=== PATIENT | female | born 1955 | race African-American/Black ===

== ENCOUNTER 2018-01-08 04:19 | Emergency (ER) | payer MEDICARE, MEDICAID ==
[2018-01-08] MEDS ORDERED: Ondansetron ODT 4 MG TAB ONE (04:39)
[2018-01-08 05:01] LABS: Hemoglobin 8.8 g/dL (12.0-16.0); Mean Corpuscular HGB CONC 33.4 g/dL (32.0-36.0); Mean Corpuscular Hemoglobin 26.5 pg (27.0-31.0); Mean Corpuscular Volume 79.5 fl (81.0-99.0); RBC Distribution Width 15.6 % (11.5-14.5); Red Blood Cell (RBC) Count 3.32 mill/uL (4.20-5.40); White Blood Cell (WBC) Count 3.1 thou/uL (4.8-10.8)
[2018-01-08 05:11] LABS: ALT (SGPT) 27 U/L (8-55); AST (SGOT) 48 U/L (5-34); Albumin 2.7 g/dL (3.4-4.8); Alkaline Phosphatase 244 U/L (40-150); Anion Gap 10 mmol/L (10-20); BUN (Urea Nitrogen) 27 mg/dL (9.8-20.1); Calc. Creatinine Clearance 0 mL/min (70-130); Calcium 8.5 mg/dL (7.8-10.44); Carbon Dioxide 22 mmol/L (23-31); Chloride 107 mmol/L (98-107); Estimated GFR-MDRD 59; Globulin 3.4 g/dL (2.4-3.5); Glucose 226 mg/dL (80-115); Lipase 83 U/L (8-78); Potassium 4.5 mmol/L (3.5-5.1); Protein, Total 6.1 g/dL (6.0-8.3); Sodium 134 mmol/L (136-145)
[2018-01-08 05:15] LABS: CKMB 1.1 ng/mL (0-6.6); Troponin I Less than 0.010 ng/mL (< 0.028)
[2018-01-08 05:19] LABS: #Eosinphils 0.1 thou/uL (0.0-0.7); #Lymphocytes 0.8 thou/uL (1.20-3.40); #Monocytes 0.4 thou/uL (0.11-0.59); #Neutrophils 1.8 thou/uL (1.40-6.50); %Basophils 0.7 % (0.0-1.0); %Eosinophils 3.1 % (0.0-10.0); %Lymphocytes 25.7 % (21.0-51.0); %Monocytes 12.4 % (0.0-10.0); %Neutrophils 58.2 % (42.0-75.0); MDiff Complete? YES; Mean Platelet Volume 6.4 fL (7.4-10.4); Microcytosis SLIGHT = 6-15 cells (100X) (0-5/hpf); PLT Morphology Comment Appears Decreased; Platelet Count 47 thou/uL (130-400)
[2018-01-08 06:35] LABS: Bilirubin Negative (Negative); Blood, Urine Small (Negative); Clarity CLEAR (Clear); Glucose, Urine (Dipstick) Negative (Negative); Leukocyte Moderate (Negative); Nitrite Negative (Negative); Protein, Urine (Dipstick) Negative (Neg-Trace); Urobilinogen 0.2 mg/dL (0.2-1.0)
[2018-01-08 06:37] LABS: Bacteria/HPF None Seen HPF (None Seen); Hyaline Casts/LPF 0-3 HYALINE CAST LPF (0-3 Hyaline); Pathc Cast-AUWi Flag 0.29 (0-2.49); Squamous Epithelial 0-3 HPF (0-3); Yeast-AUWi Flag 22.9 (0-25.0)
[2018-01-08 06:39] LABS: Specific Gravity, Urine 1.043 (1.002-1.036)
--- NOTE | 2018-01-08 08:18 | CT ---
PRELIMINARY REPORT/[facility]/EMERGENCY AFTER HOURS PROCEDURE: EXAM: CT Abdomen and Pelvis With Intravenous Contrast EXAM DATE/TIME: Exam ordered 01/08/2018 5:07 AM CLINICAL HISTORY: 62 years old, female; Pain; Abdominal pain; Generalized; Patient HX: Additional history obtained from ems, [id number] presents to ed via ems complaining of abdominal pain and vomiting onset of a couple of days . Pt. States that her last bm was yesterday. Pt. Denies any hematochezia or melena. TECHNIQUE: Axial computed tomography images of the abdomen and pelvis with intravenous contrast. Coronal reforma tted images were created and reviewed. COMPARISON: No relevant prior studies available. FINDINGS: Lung bases: There is subpleural atelectasis of the dependent portions of the lungs. ABDOMEN: Liver: There is nodularity of the liver contour suggestive of cirrhosis. Gallbladder and bile ducts: The gallbladder is probably surgically absent. No ductal dilation. Pancreas: The pancreas appears normal. No ductal dilation. Spleen: The spleen is normal. Adrenals: The adrenal glands are normal. Kidneys and ureters: The left kidney is normal. There is a focal right renal hypodensity that cannot be further characterized on the current examination. No hydronephrosis. Stomach and bowel: The stomach is normal. The duodenum is unremarkable. No obstruction. No mucosal th ickening. PELVIS: Appendix: No findings to suggest acute appendicitis. Bladder: The bladder is normal. Reproductive: The uterus is not visualized, and may be atrophic or surgically absent. ABDOMEN and PELVIS: Intraperitoneal space: There is moderate to marked abdominopelvic ascites. Bones/joints: No acute fracture. No dislocation. Soft tissues: There is a ventral abdominal wall hernia containing a small amount of ascites fluid. Vasculature: There are gastric splenic varices. The vasculature demonstrates diffuse mild atherosclerotic calcification. No abdominal aortic aneurysm. Lymph nodes: Normal. No enlarged lymph nodes. IMPRESSION: Liver cirrhosis with moderate to marked abdominopelvic ascites. Thank you for allowing us to participate in the care of your patient. Dictated and Authenticated by: Fredi Penaloza MD 01/08/2018 6:41 AM Central Time ([place] & [place]) FINAL REPORT CT ABDOMEN AND PELVIS WITH IV CONTRAST: I agree with the preliminary report given by Dr. Fredi Penaloza of [employer]. POS: [facility] [place]
== END 2018-01-08 07:02 | disposition home or self-care (01) ==
LOC: ERS 04:19
DX: K74.60 Unspecified cirrhosis of liver (principal); R18.8 Other ascites; Z79.899 Other long term (current) drug therapy; E11.9 Type 2 diabetes mellitus without complications; I10 Essential (primary) hypertension; F20.9 Schizophrenia, unspecified; F32.9 Major depressive disorder, single episode, unspecified
CPT/HCPCS: 74177; 80053; 81003; 81015; 82553; 83690; 84484; 85025; 87077; 87086; 87186; 93005; 96372; Q0162

== ENCOUNTER 2018-04-05 05:58 | Inpatient (IN) | payer MEDICARE, MEDICAID ==
[2018-04-05 06:42] LABS: INR-International Normal Ratio 1.3
[2018-04-05 06:48] LABS: ALT (SGPT) 30 U/L (8-55); AST (SGOT) 56 U/L (5-34); Albumin 2.7 g/dL (3.4-4.8); Alkaline Phosphatase 255 U/L (40-150); Anion Gap 14 mmol/L (10-20); BUN (Urea Nitrogen) 17 mg/dL (9.8-20.1); Bilirubin, Total 1.2 mg/dL (0.2-1.2); Calc. Creatinine Clearance 0 mL/min (70-130); Calcium 8.8 mg/dL (7.8-10.44); Carbon Dioxide 19 mmol/L (23-31); Chloride 107 mmol/L (98-107); Estimated GFR-MDRD 43; Globulin 4.2 g/dL (2.4-3.5); Glucose 107 mg/dL (80-115); Potassium 4.7 mmol/L (3.5-5.1); Protein, Total 6.9 g/dL (6.0-8.3); Sodium 135 mmol/L (136-145)
[2018-04-05 06:56] LABS: #Eosinphils 0.1 thou/uL (0.0-0.7); #Lymphocytes 0.8 thou/uL (1.20-3.40); #Monocytes 0.5 thou/uL (0.11-0.59); %Basophils 0.8 % (0.0-1.0); %Eosinophils 1.6 % (0.0-10.0); %Lymphocytes 18.2 % (21.0-51.0); %Monocytes 10.4 % (0.0-10.0); %Neutrophils 69.1 % (42.0-75.0); Anisocytosis SLIGHT = 6-15 cells (100X) (0-5/hpf); Hemoglobin 9.3 g/dL (12.0-16.0); MDiff Complete? YES; Mean Corpuscular HGB CONC 32.9 g/dL (32.0-36.0); Mean Corpuscular Volume 79.2 fL (78.0-98.0); Mean Platelet Volume 7.9 fL (7.4-10.4); PLT Morphology Comment Appears Decreased; Platelet Count 62 thou/uL (130-400); RBC Distribution Width 15.7 % (11.5-14.5); Red Blood Cell (RBC) Count 3.55 mill/uL (4.20-5.40); White Blood Cell (WBC) Count 4.4 thou/uL (4.8-10.8)
[2018-04-05] MEDS ORDERED: Lidocaine 1% w/Epinephrine 1:100K 20 ML VIAL ONE (07:11)
--- NOTE | 2018-04-05 10:20 | ULT ---
LIMITED ABDOMINAL ULTRASOUND: INDICATION: Evaluate for ascites. FINDINGS: There is a mild amount of ascites present, predominantly in the right upper quadrant and the left low er quadrant. IMPRESSION: Mild amount of ascites. Findings discussed with Dr. Gomez at 9:30 a.m. on 04/05/18. CODE CR POS: [facility]
[2018-04-05 10:43] VITALS: BMI 34.4
[2018-04-05] MEDS ORDERED: Calcium Carbonate 500 MG ChewTAB PO PRN (11:29)
[2018-04-05] MEDS ORDERED: Dextrose 5% in Water 1,000 ML IV PRN (11:29)
[2018-04-05] MEDS ORDERED: Dextrose 50% Abboject 50 ML SYRINGE SLOW IVP PRN (11:29)
--- NOTE | 2018-04-05 11:55 | HP ---
DATE OF ADMISSION: 04/05/2018 PRIMARY CARE PHYSICIAN: Damian Moulton M.D. Primary side splitter out of town. CHIEF COMPLAINT: Abdominal distention. HISTORY OF PRESENT ILLNESS: Patient is a 62-year-old female with cirrhosis with portal hypertension who presented to the emergency room with worsening abdominal swelling that has been going on for last 2-3 weeks. Her abdomen gradually got distended. She had some nausea; however, denies any vomiting. No fever, chills, diarrhea or jaundice reported. She has constant dull pain due to distention. She denies any abdominal tenderness. This pain was constant without any aggravating or relieving factor. No chest pain, palpitations or syncope reported. PAST MEDICAL HISTORY: 1. Liver cirrhosis secondary to alcohol abuse with ascites and portal hypertension. 2. Pancytopenia secondary to hypersplenism. 3. Obesity with a BMI 34.5. 4. Hypertension. 5. Diabetes mellitus type 2. 6. Bipolar disorder. PAST SURGICAL HISTORY: 1. Hysterectomy with tubal ligation. 2. Right shoulder repair. 3. EGD and colonoscopy. 4. Cataract surgery. ALLERGIES: The patient is allergic to ASPIRIN, CODEINE, FENTANYL, IODINE, DEMEROL, VERSED, PENICILLIN, and other medications. CURRENT HOME MEDICATIONS: Patient does not remember any of her home medications. We are trying to obtain from her daughter. Per outpatient pharmacy records, she recently filled prescription for Novolin insulin 70/30, 60 units twice a day; Ambien as needed; Requip as needed; Zofran as needed; hydroxyzine as needed; tramadol as needed. SOCIAL HISTORY: Patient currently lives at home with her family. She denies any current use of alcohol, smoking, or drug use. She has a history of alcohol abuse. She is FULL CODE. She has a history of drug abuse in the remote past. FAMILY HISTORY: Significant for breast cancer in the mother. REVIEW OF SYSTEMS: The following complete review of systems was negative, unless otherwise mentioned in the HPI or below: Constitutional: Weight loss or gain, ability to conduct usual activities. Skin: Rash, itching. Eyes: Double vision, pain. ENT/Mouth: Nose bleeding, neck stiffness, pain, tenderness. Cardiovascular: Palpitations, dyspnea on exertion, orthopnea. Respiratory: Shortness of breath, wheezing, cough, hemoptysis, fever or night sweats. Gastrointestinal: Poor appetite, abdominal pain, heartburn, nausea, vomiting, constipation, or diarrhea. Genitourinary: Urgency, frequency, dysuria, nocturia. Musculoskeletal: Pain, swelling. Neurologic/Psychiatric: Anxiety, depression. Allergy/Immunologic: Skin rash, bleeding tendency. PHYSICAL EXAMINATION: VITAL SIGNS: In the emergency room, temperature 98.4, respirations 20, pulse rate of 98, blood pressure 136/73 with O2 saturation 97% on room air. GENERAL: A 62-year-old female, in no significant distress. HEENT: Atraumatic, normocephalic, sclerae are anicteric. Dry mucous membranes. No oral lesion. NECK: Supple, no JVD, no carotid bruit. LUNGS: Showed diminished air entry at bilateral bases. No rhonchi, rales, or wheezing noted. HEART: S1, S2 present. Regular, tachycardic, no heaves or pulsation. No significant murmurs appreciated. ABDOMEN: Distended with shifting dullness. Mild generalized tenderness, no rebound, guarding, no costovertebral angle tenderness. EXTREMITIES: 1+ edema in bilateral lower extremities. No calf tenderness. SKIN: Warm and dry. LYMPH NODES: No palpable lymph nodes in the neck. PERIPHERAL VASCULAR: Radial pulses palpable bilaterally. MUSCULOSKELETAL: No joint swelling or tenderness. NEUROLOGY: Grossly nonfocal, moves all four extremities. Flapping tremors were present. LABORATORY FINDINGS: 1. Ammonia of 111, creatinine 1.49, sodium 135, potassium 4.7, chloride 107, bicarbonate 19, albumin 2.7, alkaline phosphatase 255. 2. CBC showed WBC 4.4 with hemoglobin 9.3, hematocrit 28.1 with platelet of 62. 3. Abdominal ultrasound showed mild ascites. Please note that paracentesis was attempted in the emergency room and was unsuccessful. IMPRESSION: 1. Hepatic encephalopathy. 2. Abdominal discomfort secondary to symptomatic ascites. 3. Cirrhosis secondary to alcohol with pancytopenia, portal hypertension, and coagulopathy. 4. Acute kidney injury, probably the precipitant for hepatic encephalopathy. It is unclear whether patient takes lactulose at home. We will also rule out urinary tract infection. 5. Chronic kidney disease, stage 2. 6. Obesity with a BMI 34.5. 7. Bipolar disorder. 8. Diabetes mellitus type 2. 9. Hypertension. PLAN: The patient will be monitored on the medical floor. We will start her on lactulose. If encephalopathy persists, then we will consider adding rifaximin in a.m. We will add empiric antibiotics to prevent SBP. Rule out urinary tract infection. Gentle IV hydration for acute kidney injury. We will consult Gastroenterology. We will recheck ammonia in a.m. We will discuss with GI if we can get a paracentesis done. We will start her on sliding scale. Confirm insulin dosing. Plan of care was discussed with the patient in detail. She stated understanding. MTDD
--- NOTE | 2018-04-05 12:38 | CON ---
DATE OF CONSULTATION: 04/05/2018 HISTORY OF PRESENT ILLNESS: The patient is a 62-year-old -[place] female who presented to [facility] emergency room today with increasing abdominal distention. She also had abdominal discomfort. She had previously been undergoing paracentesis at [facility] in [place] on a regular basis and then stop ped for several months. Her distention did not recur. However, over the last several weeks, it has recurred. She denies any melena, hematochezia, any weight loss, any fever or chills. She has had na usea and vomiting several days ago. She has been seen by Dr. Gudino in the past. PAST MEDICAL HISTORY: Includes diabetes mellitus, history of hepatitis C, cirrhosis, hypertension. PAST SURGICAL HISTORY: Cholecystectomy, hysterectomy, right shoulder surgery, and tubal ligation. ALLERGIES: No known allergies. MEDICATIONS: Simvastatin 10 mg p.o. daily, spironolactone 100 mg p.o. daily, omeprazole 40 mg p.o. d aily, trazodone 100 mg p.o. at bedtime, tramadol 50 mg p.o. b.i.d. p.r.n., Ambien 10 mg p.o. at bedti me, Diovan 40 mg p.o. daily, simvastatin 20 mg p.o. daily, Xifaxan 550 mg p.o. b.i.d., Zofran 4 mg p. o. q.6 hours p.r.n., nadolol 20 mg p.o. daily, lactulose 30 mL p.o. daily, insulin 20 units subcu q.p .m., Lasix 40 mg p.o. daily, citalopram 10 mg p.o. daily, and Cipro 500 mg p.o. q.12 hours. SOCIAL HISTORY: She stopped smoking and drinking in 1988. FAMILY HISTORY: Negative for GI or liver disease. REVIEW OF SYSTEMS: Constitutional: No fever, chills, no weight loss. Eyes: Normal, no blurred vis ion or double vision. ENT: No sore throat or earaches. Cardiovascular: No chest pain or palpitati on. Pulmonary: No shortness of breath, cough or wheezing. Gastrointestinal: See above. Genitouri nary: No hematuria or dysuria. Musculoskeletal: No joint pain or muscle weakness. Skin: No rashe s. PHYSICAL EXAMINATION: GENERAL: Shows overweight -[place] female in no acute distress. VITAL SIGNS: Temperature 97.8, pulse 88, respiratory rate 18, blood pressure 148/71. HEENT: Unremarkable. NECK: Supple. CHEST: Clear. CARDIOVASCULAR: Regular rate and rhythm. ABDOMEN: Soft. Diffusely tender. There is a bandage in the left lower quadrant from a recent parac entesis. She has midline surgical scar. RECTAL: Deferred. EXTREMITIES: Showed no edema. LABORATORY DATA: Shows a white blood cell count of 4.4, hemoglobin 9.3, hematocrit 28.1, MCV of 97.2 , platelet count 62,000. PT is 16.0 with an INR of 1.3. Chemistries show sodium 135, CO2 19, creati nine 1.49, glucose 67, AST of 56, alkaline phosphatase of 255. Ammonia 111, albumin 2.7, lipase of 1 03. ASSESSMENT: 1. Cirrhosis. 2. Mild hepatic encephalopathy. 3. Ascites - the patient had mild amount of ascites by ultrasound and had a dry tap in the emergency room. Therefore, I would not perform paracentesis again. 4. History of hepatitis C - hepatitis C by PCR was negative. 5. Diabetes mellitus. RECOMMENDATIONS: 1. Low sodium diet. 2. Hold diuretics for now. 3. Continue lactulose 30 mL p.o. b.i.d. 4. Continue Xifaxan 550 mg p.o. b.i.d. 5. Repeat serum ammonia tomorrow. 6. Okay to begin diet.
[2018-04-05] MEDS: Sodium Chloride 0.9% 1,000 ML IV SCH (12:42)
[2018-04-05] MEDS ORDERED: ROPINIROLE HCL 0.5 MG PO PRN (15:15)
[2018-04-05] MEDS ORDERED: Ondansetron ODT 4 MG TAB PO PRN (16:07)
[2018-04-05] MEDS ORDERED: Ondansetron HCl/PF 4 MG/2 ML Vial IVP PRN (16:07)
[2018-04-05] MEDS: traMADol HCl 50 MG TAB PO PRN (16:27)
[2018-04-05] MEDS: hydrOXYzine 25 MG TAB PO PRN ×2 (16:27→22:43)
[2018-04-05] MEDS: rOPINIRole HCl 0.25 MG TAB PO PRN ×2 (16:27→22:43)
[2018-04-05] MEDS ORDERED: Insulin Glargine 10 UNITS in Pre-Filled Syringe SC SCH (21:00)
[2018-04-05] MEDS: Rifaximin 550 MG TAB PO SCH (21:04)
[2018-04-05] MEDS: Famotidine/PF 20 mg/2ml Vial SLOW IVP SCH (21:04)
[2018-04-06] MEDS: Sodium Chloride 0.9% 1,000 ML IV SCH ×2 (03:17→10:35)
[2018-04-06 04:36] LABS: ALT (SGPT) 25 U/L (8-55); AST (SGOT) 49 U/L (5-34); Albumin 2.4 g/dL (3.4-4.8); Alkaline Phosphatase 202 U/L (40-150); Anion Gap 11 mmol/L (10-20); BUN (Urea Nitrogen) 16 mg/dL (9.8-20.1); Bilirubin, Total 1.1 mg/dL (0.2-1.2); Calc. Creatinine Clearance 67 mL/min (70-130); Calcium 8.3 mg/dL (7.8-10.44); Carbon Dioxide 19 mmol/L (23-31); Chloride 109 mmol/L (98-107); Estimated GFR-MDRD 48; Globulin 3.7 g/dL (2.4-3.5); Glucose 189 mg/dL (80-115); Lipase 92 U/L (8-78); Potassium 4.8 mmol/L (3.5-5.1); Protein, Total 6.1 g/dL (6.0-8.3); Sodium 134 mmol/L (136-145)
[2018-04-06 04:58] LABS: #Lymphocytes 0.6 thou/uL (1.20-3.40); #Monocytes 0.4 thou/uL (0.11-0.59); %Basophils 0.2 % (0.0-1.0); %Eosinophils 1.2 % (0.0-10.0); %Lymphocytes 18.6 % (21.0-51.0); Hemoglobin 8.9 g/dL (12.0-16.0); Mean Corpuscular HGB CONC 33.6 g/dL (32.0-36.0); Mean Corpuscular Hemoglobin 26.5 pg (27.0-31.0); Mean Corpuscular Volume 78.7 fL (78.0-98.0); Mean Platelet Volume 6.1 fL (7.4-10.4); PLT Morphology Comment Appears Decreased; Platelet Count 55 thou/uL (130-400); Red Blood Cell (RBC) Count 3.34 mill/uL (4.20-5.40)
[2018-04-06] MEDS ORDERED: Acetaminophen 325 MG TAB PO PRN (06:27)
[2018-04-06] MEDS ORDERED: Eucerin (Mineral Oil/Petrolatum,White) 30 gm Jar TOP PRN (06:27)
[2018-04-06] MEDS ORDERED: Metoclopramide HCl 10 MG/2 ML VIAL IVP PRN (06:27)
[2018-04-06] MEDS ORDERED: Sodium Chloride 0.65% Nasal 44 ML BOT EA NARE PRN (06:27)
[2018-04-06] MEDS ORDERED: hydrALAZINE 20 MG/ML VIAL SLOW IVP PRN (06:27)
[2018-04-06] MEDS ORDERED: Chloraseptic Spray 180 ml Bottle PO PRN (06:27)
[2018-04-06] MEDS ORDERED: Artificial Tears 18 DROP/0.9 ML EA EYE PRN (06:27)
[2018-04-06] MEDS ORDERED: Diabetic Tussin 200 MG/10 ML UDCUP PO PRN (06:27)
[2018-04-06] MEDS: Escitalopram Oxalate 10 mg Tablet PO SCH (08:16)
[2018-04-06] MEDS: Famotidine/PF 20 mg/2ml Vial SLOW IVP SCH ×2 (08:16→20:14)
[2018-04-06] MEDS: Atorvastatin Calcium 10 MG TAB PO SCH (08:16)
[2018-04-06] MEDS: Rifaximin 550 MG TAB PO SCH ×2 (08:16→20:14)
[2018-04-06] MEDS ORDERED: Insulin Glargine 10 UNITS in Pre-Filled Syringe SC SCH (09:00)
[2018-04-06] MEDS: traMADol HCl 50 MG TAB PO PRN (09:25)
[2018-04-06] MEDS ORDERED: Ondansetron HCl/PF 4 MG/2 ML Vial IVP PRN (09:30)
--- NOTE | 2018-04-06 09:32 | PDOC.PN ---
- Subjective Encounter Start Date: 04/06/18 Encounter Start Time: 07:40 -: old records requested/rev pt c/o nausea, had BM, no abdominal pain, no fever - Objective Resuscitation Status: Resuscitation Status FULL:Full Resuscitation MAR Reviewed: Yes Vital Signs & Weight: Vital Signs (12 hours) Temp Pulse Resp BP Pulse Ox 04/06/18 08:03 98.6 F 94 20 134/68 98 04/06/18 04:00 98.6 F 96 18 159/98 H 98 04/06/18 00:00 97.5 F L 88 16 137/77 100 Weight Weight 220 lb 3.869 oz I&O: 04/05/18 04/06/18 04/07/18 06:59 06:59 06:59 Intake Total 1400 Balance 1400 Result Diagrams: 04/06/18 03:37 04/06/18 03:37 Additional Labs: Accuchecks 04/06/18 04/05/18 04/05/18 03:31 19:20 17:05 POC Glucose 173 H 192 H 137 H 04/05/18 11:34 POC Glucose 67 L Radiology Reviewed by me: Yes (US abdomen) Phys Exam - Physical Examination Constitutional: NAD HEENT: PERRLA, moist MMs, sclera anicteric Neck: no JVD, supple Respiratory: no wheezing, no rales, no rhonchi Cardiovascular: RRR, no significant murmur, no rub Gastrointestinal: soft, non-tender, no distention, positive bowel sounds mild ascites+ Musculoskeletal: no edema, pulses present Neurological: non-focal, normal sensation, moves all 4 limbs Psychiatric: normal affect Deviation from normal: no asterexis Skin: no rash, normal turgor Dx/Plan (1) Acute hepatic encephalopathy Code(s): K72.00 - ACUTE AND SUBACUTE HEPATIC FAILURE WITHOUT COMA Status: Acute (2) Acute kidney failure Status: Acute (3) Alcoholic cirrhosis of liver with ascites Code(s): K70.31 - ALCOHOLIC CIRRHOSIS OF LIVER WITH ASCITES Status: Chronic (4) Bipolar disorder Code(s): F31.9 - BIPOLAR DISORDER, UNSPECIFIED Status: Chronic (5) Chronic hepatitis C Code(s): B18.2 - CHRONIC VIRAL HEPATITIS C Status: Chronic Qualifiers: (6) DM2 (diabetes mellitus, type 2) Status: Chronic (7) Hypertension Code(s): I10 - ESSENTIAL (PRIMARY) HYPERTENSION Status: Chronic (8) Obesity (BMI 30-39.9) Code(s): E66.9 - OBESITY, UNSPECIFIED Status: Chronic (9) Pancytopenia Code(s): D61.818 - OTHER PANCYTOPENIA Status: Chronic (10) Thrombocytopenia Code(s): D69.6 - THROMBOCYTOPENIA, UNSPECIFIED Status: Chronic - Plan cont current plan of care, continue antibiotics * continue gentle IVF for MAURIZIO * continue lactulose and rifaximin for hepatic encephalopathy * recheck ammonia, and cbc, cmp tomorrow * ambulate as tolerated * possible discharge in next 24-48 hours * GI following * medication reviewed as below * symptomatic treatment. Review of Systems - Review of Systems Eyes: negative: Pain, Vision Change, Conjunctivae Inflammation, Eyelid Inflammation, Redness, Other ENT: negative: Ear Pain, Ear Discharge, Nose Pain, Nose Discharge, Nose Congestion, Mouth Pain, Mouth Swelling, Throat Pain, Throat Swelling, Other Respiratory: negative: Cough, Dry, Shortness of Breath, Hemoptysis, SOB with Excertion, Pleuritic Pain, Sputum, Wheezing Cardiovascular: negative: chest pain, palpitations, orthopnea, paroxysmal nocturnal dyspnea, edema, light headedness, other Gastrointestinal: Nausea. negative: Vomiting, Abdominal Pain, Diarrhea, Constipation, Melena, Hematochezia, Other Genitourinary: negative: Dysuria, Frequency, Incontinence, Hematuria, Retention , Other Musculoskeletal: negative: Neck Pain, Shoulder Pain, Arm Pain, Back Pain, Hand Pain, Leg Pain, Foot Pain, Other Skin: negative: Rash, Lesions, Michael, Bruising, Other - Medications/Allergies Allergies/Adverse Reactions: Allergies Allergy/AdvReac Type Severity Reaction Status Date / Time aspirin Allergy Verified 02/08/18 08:28 codeine Allergy Verified 02/08/18 08:28 fentanyl Allergy Verified 02/08/18 08:28 Iodine and Iodide Containing Allergy Verified 02/08/18 08:28 Produc meperidine [From Demerol] Allergy Verified 02/08/18 08:28 midazolam [From Versed] Allergy Verified 02/08/18 08:28 Penicillins Allergy Verified 02/08/18 08:28 Sulfa (Sulfonamide Allergy Verified 02/08/18 08:28 Antibiotics) Medications: Current Medications Acetaminophen (Tylenol) 325 mg PO Q4H PRN PRN Reason: Headache/Fever or Mild Pain Artificial Tears (Tears Naturale) 0 drop EA EYE PRN PRN PRN Reason: Dry Eyes Atorvastatin Calcium (Lipitor) 10 mg PO DAILY [facility] Last Admin: 04/06/18 08:16 Dose: 10 mg Calcium Carbonate (Tums) 1,000 mg PO Q4H PRN PRN Reason: Heartburn or Indigestion Dextrose/Water (Dextrose 50%) 25 gm SLOW IVP PRN PRN PRN Reason: Hypoglycemia Escitalopram Oxalate (Lexapro) 10 mg PO DAILY [facility] Last Admin: 04/06/18 08:16 Dose: 10 mg Famotidine (Pepcid) 20 mg SLOW IVP Q12HR [facility] Last Admin: 04/06/18 08:16 Dose: 20 mg Glucagon (Glucagon) 1 mg IM PRN PRN PRN Reason: Hypoglycemia Guaifenesin (Robitussin Sf) 200 mg PO Q4H PRN PRN Reason: Cough Hydralazine HCl (Apresoline) 10 mg SLOW IVP Q4H PRN PRN Reason: Systolic BP > 180 Hydroxyzine HCl (Atarax) 25 mg PO TID PRN PRN Reason: Itching Last Admin: 04/05/18 22:43 Dose: 25 mg Levofloxacin 500 mg/ Device 100 mls @ 100 mls/hr IVPB Q24HR [facility] Last Admin: 04/05/18 12:42 Dose: 100 mls Dextrose/Water (D5w) 1,000 mls @ 0 mls/hr IV .Q0M PRN PRN Reason: Hypoglycemia Insulin Human Regular (Humulin R) 0 units SC .MILD SLIDING SCALE PRN PRN Reason: Mild Correctional Scale Insulin Human Regular (Humulin R) 0 units SC .BEDTIME SLIDING SC PRN PRN Reason: Bedtime Correctional Scale Lactulose (Lactulose) 20 gm PO TID [facility] Last Admin: 04/06/18 08:16 Dose: 20 gm Metoclopramide HCl (Reglan) 5 mg IVP Q4H PRN PRN Reason: Nausea Mineral Oil/White Petrolatum (Eucerin Cream) 0 gm TOP BIDPRN PRN PRN Reason: Dry Skin Ondansetron HCl (Zofran Odt) 4 mg PO Q6H PRN PRN Reason: Nausea/Vomiting Ondansetron HCl (Zofran) 4 mg IVP Q6H PRN PRN Reason: Nausea/Vomiting Phenol (Chloraseptic [place] 180 Ml Bot) 0 ml PO PRN PRN PRN Reason: Sore Throat Rifaximin (Xifaxan) 550 mg PO BID [facility] Last Admin: 04/06/18 08:16 Dose: 550 mg Ropinirole HCl (Requip) 0.25 mg PO TID PRN PRN Reason: Restless leg Last Admin: 04/05/18 22:43 Dose: 0.25 mg Sodium Chloride (Stevenson Nasal [place] 0.65%) 0 ml EA NARE QIDPRN PRN PRN Reason: Nasal Congestion Tramadol HCl (Ultram) 50 mg PO BID PRN PRN Reason: Pain Last Admin: 04/06/18 09:25 Dose: 50 mg
[2018-04-06] MEDS: Ondansetron ODT 4 MG TAB PO PRN ×2 (10:34→20:13)
[2018-04-06] MEDS: Insulin Regular 300 UNITS/3 ML VIAL SC PRN ×3 (13:19→20:18)
[2018-04-06] MEDS: rOPINIRole HCl 0.25 MG TAB PO PRN (20:15)
[2018-04-06] MEDS: hydrOXYzine 25 MG TAB PO PRN (20:16)
--- NOTE | 2018-04-07 00:26 | PRG ---
DATE OF SERVICE: 04/06/2018 SUBJECTIVE: Ms. Barraza is feeling better today. Her abdominal pain is much improved. OBJECTIVE: VITAL SIGNS: Temperature is 97.6, pulse 86, and blood pressure 132/66. GENERAL: She is in no acute distress. She is alert and oriented x3. She has very slight asterixis . LUNGS: Clear to auscultation bilaterally. HEART: Regular rate and rhythm without murmur. ABDOMEN: Soft, nontender, nondistended. Bowel sounds are present. EXTREMITIES: No lower extremity edema. IMPRESSION: 1. Mild hepatic encephalopathy. 2. Cirrhosis of the liver secondary to past alcohol and past fatty liver. She does have antibodies to hepatitis C, but does not have chronic hepatitis C as her RNA level is negative. 3. Acute/chronic renal insufficiency. Her diuretics are currently held as her creatinine appears to be above baseline. Her creatinine did improve from yesterday to today. 4. Ascites. Ultrasound only showed a mild amount of ascites, not really adequate for therapeutic pa racentesis. She did have a dry tap in the ER. RECOMMENDATIONS: 1. Continue rifaximin 550 mg twice daily and lactulose 20 grams 3 times daily. She did have 4 or 5 bowel movements today and the lactulose could likely be backed off to twice daily depending on how sh e does overnight. If her mental status is clear tomorrow and she is having more than 4 bowel movemen ts in 24 hours, then reduce the dose of the lactulose tomorrow morning. 2. She is currently on levofloxacin. may be prophylactic for suspected SBP in the ER. This c an likely be discontinued after a 5-day course of this reason.
[2018-04-07] MEDS: traMADol HCl 50 MG TAB PO PRN (01:56)
[2018-04-07 04:26] LABS: ALT (SGPT) 26 U/L (8-55); AST (SGOT) 48 U/L (5-34); Albumin 2.5 g/dL (3.4-4.8); Alkaline Phosphatase 234 U/L (40-150); Anion Gap 9 mmol/L (10-20); BUN (Urea Nitrogen) 15 mg/dL (9.8-20.1); Calc. Creatinine Clearance 70 mL/min (70-130); Calcium 8.5 mg/dL (7.8-10.44); Carbon Dioxide 20 mmol/L (23-31); Chloride 108 mmol/L (98-107); Estimated GFR-MDRD 51; Globulin 3.9 g/dL (2.4-3.5); Glucose 266 mg/dL (80-115); Protein, Total 6.4 g/dL (6.0-8.3); Sodium 132 mmol/L (136-145)
[2018-04-07 05:20] LABS: #Eosinphils 0.1 thou/uL (0.0-0.7); #Lymphocytes 0.7 thou/uL (1.20-3.40); #Monocytes 0.5 thou/uL (0.11-0.59); #Neutrophils 2.1 thou/uL (1.40-6.50); %Basophils 0.5 % (0.0-1.0); %Eosinophils 1.9 % (0.0-10.0); %Lymphocytes 21.6 % (21.0-51.0); %Monocytes 13.6 % (0.0-10.0); %Neutrophils 62.4 % (42.0-75.0); Elliptocytes SLIGHT = 2-5 cells (100X) (0-1/hpf); Hemoglobin 9.1 g/dL (12.0-16.0); MDiff Complete? YES; Mean Corpuscular HGB CONC 33.2 g/dL (32.0-36.0); Mean Corpuscular Hemoglobin 26.7 pg (27.0-31.0); Mean Corpuscular Volume 80.5 fL (78.0-98.0); Mean Platelet Volume 6.6 fL (7.4-10.4); PLT Morphology Comment Appears Decreased; Platelet Count 63 thou/uL (130-400); RBC Distribution Width 15.8 % (11.5-14.5); Red Blood Cell (RBC) Count 3.41 mill/uL (4.20-5.40); White Blood Cell (WBC) Count 3.3 thou/uL (4.8-10.8)
[2018-04-07] MEDS: Insulin Regular 300 UNITS/3 ML VIAL SC PRN ×4 (05:35→21:12)
[2018-04-07] MEDS: Rifaximin 550 MG TAB PO SCH ×2 (09:09→21:03)
[2018-04-07] MEDS: Atorvastatin Calcium 10 MG TAB PO SCH (09:09)
[2018-04-07] MEDS: Famotidine/PF 20 mg/2ml Vial SLOW IVP SCH ×2 (09:09→21:03)
[2018-04-07] MEDS: Escitalopram Oxalate 10 mg Tablet PO SCH (09:09)
[2018-04-07] MEDS: Sodium Chloride 0.9% 1,000 ML IV SCH (09:13)
[2018-04-07] MEDS: Ondansetron ODT 4 MG TAB PO PRN (10:23)
--- NOTE | 2018-04-07 10:56 | PDOC.PN ---
- Subjective Encounter Start Date: 04/07/18 Encounter Start Time: 07:50 Patient seen and examined. No new complaints. No overnight events has no BM today but had 6-7 yesterday today feels sleepy - Objective Resuscitation Status: Resuscitation Status FULL:Full Resuscitation MAR Reviewed: Yes Vital Signs & Weight: Vital Signs (12 hours) Temp Pulse Resp BP BP Pulse Ox 04/07/18 09:08 98.2 F 84 16 99 04/07/18 07:19 98.2 F 84 16 118/74 99 04/07/18 04:00 98.5 F 87 20 157/81 H 99 Weight Admit Weight 220 lb 3.869 oz Weight 220 lb 3.869 oz I&O: 04/06/18 04/07/18 04/08/18 06:59 06:59 06:59 Intake Total 1400 1350 Balance 1400 1350 Result Diagrams: 04/07/18 03:47 04/07/18 03:47 Additional Labs: Accuchecks 04/07/18 04/06/18 04/06/18 05:31 19:30 16:23 POC Glucose 309 H 235 H 268 H 04/06/18 06:09 POC Glucose 201 H Phys Exam - Physical Examination Constitutional: NAD HEENT: PERRLA, moist MMs, sclera anicteric Neck: no JVD, supple Respiratory: no wheezing, no rales, no rhonchi Cardiovascular: RRR, no significant murmur, no rub Gastrointestinal: soft, non-tender, no distention, positive bowel sounds Musculoskeletal: no edema, pulses present Neurological: non-focal, normal sensation, moves all 4 limbs Lymphatic: no nodes Psychiatric: normal affect Skin: no rash, normal turgor Dx/Plan (1) Acute hepatic encephalopathy Code(s): K72.00 - ACUTE AND SUBACUTE HEPATIC FAILURE WITHOUT COMA Status: Acute (2) Acute kidney failure Status: Acute (3) Alcoholic cirrhosis of liver with ascites Code(s): K70.31 - ALCOHOLIC CIRRHOSIS OF LIVER WITH ASCITES Status: Chronic (4) Bipolar disorder Code(s): F31.9 - BIPOLAR DISORDER, UNSPECIFIED Status: Chronic (5) Chronic hepatitis C Code(s): B18.2 - CHRONIC VIRAL HEPATITIS C Status: Chronic Qualifiers: (6) DM2 (diabetes mellitus, type 2) Status: Chronic (7) Hypertension Code(s): I10 - ESSENTIAL (PRIMARY) HYPERTENSION Status: Chronic (8) Obesity (BMI 30-39.9) Code(s): E66.9 - OBESITY, UNSPECIFIED Status: Chronic (9) Pancytopenia Code(s): D61.818 - OTHER PANCYTOPENIA Status: Chronic (10) Thrombocytopenia Code(s): D69.6 - THROMBOCYTOPENIA, UNSPECIFIED Status: Chronic - Plan cont current plan of care, continue antibiotics * continue levaquin * dc ivf * continue rifaximin * increase lactuose * ammonia still high * ambulate as tolerated * medication reviewed as below * symptomatic treatment. Review of Systems - Review of Systems Constitutional: negative: fever, chills, sweats, weakness, malaise, other Eyes: negative: Pain, Vision Change, Conjunctivae Inflammation, Eyelid Inflammation, Redness, Other ENT: negative: Ear Pain, Ear Discharge, Nose Pain, Nose Discharge, Nose Congestion, Mouth Pain, Mouth Swelling, Throat Pain, Throat Swelling, Other Respiratory: negative: Cough, Dry, Shortness of Breath, Hemoptysis, SOB with Excertion, Pleuritic Pain, Sputum, Wheezing Cardiovascular: negative: chest pain, palpitations, orthopnea, paroxysmal nocturnal dyspnea, edema, light headedness, other Gastrointestinal: negative: Nausea, Vomiting, Abdominal Pain, Diarrhea, Constipation, Melena, Hematochezia, Other Genitourinary: negative: Dysuria, Frequency, Incontinence, Hematuria, Retention , Other Musculoskeletal: negative: Neck Pain, Shoulder Pain, Arm Pain, Back Pain, Hand Pain, Leg Pain, Foot Pain, Other Skin: negative: Rash, Lesions, Michael, Bruising, Other - Medications/Allergies Allergies/Adverse Reactions: Allergies Allergy/AdvReac Type Severity Reaction Status Date / Time aspirin Allergy Verified 02/08/18 08:28 codeine Allergy Verified 02/08/18 08:28 fentanyl Allergy Verified 02/08/18 08:28 Iodine and Iodide Containing Allergy Verified 02/08/18 08:28 Produc meperidine [From Demerol] Allergy Verified 02/08/18 08:28 midazolam [From Versed] Allergy Verified 02/08/18 08:28 Penicillins Allergy Verified 02/08/18 08:28 Sulfa (Sulfonamide Allergy Verified 02/08/18 08:28 Antibiotics) Medications: Current Medications Acetaminophen (Tylenol) 325 mg PO Q4H PRN PRN Reason: Headache/Fever or Mild Pain Artificial Tears (Tears Naturale) 0 drop EA EYE PRN PRN PRN Reason: Dry Eyes Atorvastatin Calcium (Lipitor) 10 mg PO DAILY [facility] Last Admin: 04/07/18 09:09 Dose: 10 mg Calcium Carbonate (Tums) 1,000 mg PO Q4H PRN PRN Reason: Heartburn or Indigestion Dextrose/Water (Dextrose 50%) 25 gm SLOW IVP PRN PRN PRN Reason: Hypoglycemia Escitalopram Oxalate (Lexapro) 10 mg PO DAILY [facility] Last Admin: 04/07/18 09:09 Dose: 10 mg Famotidine (Pepcid) 20 mg SLOW IVP Q12HR [facility] Last Admin: 04/07/18 09:09 Dose: 20 mg Glucagon (Glucagon) 1 mg IM PRN PRN PRN Reason: Hypoglycemia Guaifenesin (Robitussin Sf) 200 mg PO Q4H PRN PRN Reason: Cough Hydralazine HCl (Apresoline) 10 mg SLOW IVP Q4H PRN PRN Reason: Systolic BP > 180 Hydroxyzine HCl (Atarax) 25 mg PO TID PRN PRN Reason: Itching Last Admin: 04/06/18 20:16 Dose: 25 mg Levofloxacin 500 mg/ Device 100 mls @ 100 mls/hr IVPB Q24HR [facility] Last Admin: 04/06/18 12:35 Dose: 100 mls Dextrose/Water (D5w) 1,000 mls @ 0 mls/hr IV .Q0M PRN PRN Reason: Hypoglycemia Insulin Human Regular (Humulin R) 0 units SC .MILD SLIDING SCALE PRN PRN Reason: Mild Correctional Scale Last Admin: 04/07/18 05:35 Dose: 5 unit Insulin Human Regular (Humulin R) 0 units SC .BEDTIME SLIDING SC PRN PRN Reason: Bedtime Correctional Scale Last Admin: 04/06/18 20:18 Dose: 2 unit Lactulose (Lactulose) 20 gm PO QID [facility] Last Admin: 04/07/18 09:09 Dose: 20 gm Metoclopramide HCl (Reglan) 5 mg IVP Q4H PRN PRN Reason: Nausea Mineral Oil/White Petrolatum (Eucerin Cream) 0 gm TOP BIDPRN PRN PRN Reason: Dry Skin Ondansetron HCl (Zofran Odt) 4 mg PO Q6H PRN PRN Reason: Nausea/Vomiting Last Admin: 04/07/18 10:23 Dose: 4 mg Ondansetron HCl (Zofran) 4 mg IVP Q6H PRN PRN Reason: Nausea/Vomiting Phenol (Chloraseptic [place] 180 Ml Bot) 0 ml PO PRN PRN PRN Reason: Sore Throat Rifaximin (Xifaxan) 550 mg PO BID [facility] Last Admin: 04/07/18 09:09 Dose: 550 mg Ropinirole HCl (Requip) 0.25 mg PO TID PRN PRN Reason: Restless leg Last Admin: 04/06/18 20:15 Dose: 0.25 mg Sodium Chloride ([place] Nasal [place] 0.65%) 0 ml EA NARE QIDPRN PRN PRN Reason: Nasal Congestion Sodium Chloride (Flush - Normal Saline) 10 ml IVF Q12HR [facility] Last Admin: 04/07/18 09:09 Dose: 10 ml Sodium Chloride (Flush - Normal Saline) 10 ml IVF PRN PRN PRN Reason: Saline Flush Tramadol HCl (Ultram) 50 mg PO BID PRN PRN Reason: Pain Last Admin: 04/07/18 01:56 Dose: 50 mg
[2018-04-07] MEDS: hydrOXYzine 25 MG TAB PO PRN ×2 (13:44→21:13)
--- NOTE | 2018-04-07 15:19 | PRG ---
DATE OF SERVICE: 04/07/2018. SUBJECTIVE: Ms. Barraza has had a couple of bowel movements today. She states that she does not sleep well at night and so she has been somewhat sleepy during the day and has been asking for sleeping me dication. She has no nausea or vomiting. No blood in the stool. No abdominal pain. PHYSICAL EXAMINATION: VITAL SIGNS: Temperature 98.2, pulse 84, blood pressure 157/81. GENERAL: She is in no acute distress, alert and oriented x3. LUNGS: Clear to auscultation bilaterally. HEART: Regular rate and rhythm. ABDOMEN: Soft, nontender, nondistended. Bowel sounds are present. EXTREMITIES: No lower extremity edema. LABORATORY DATA: Ammonia is still elevated at 95, creatinine 1.29, albumin 2.5. IMPRESSION: 1. Mild hepatic encephalopathy. 2. Cirrhosis of liver secondary to past alcohol and fatty liver. 3. Chronic renal insufficiency. Her creatinine is improving. Currently, her diuretics are on hold. 4. Ascites. Ultrasound only showed a mild amount of ascites. Inadequate fluid for therapeutic para centesis. She is on levofloxacin, which appears to be prophylactically for suspected SBP in the ER. RECOMMENDATIONS: 1. Continue rifaximin and lactulose. I would not wean the lactulose back at this point given the pe rsistent sleepiness and adequate stool output at the current dosing. 2. Salt restricted diet. 3. The levofloxacin could be stopped after a 5-day course from a GI perspective. 4. Regarding her trouble sleeping, this is likely secondary to the hepatic encephalopathy. I would recommend avoiding any sleep aids at this point. The primary treatment is to get better control of t he hepatic encephalopathy. 5. I would anticipate discharge home tomorrow. I will sign off for now. Please call if GI can be o f assistance.
[2018-04-07] MEDS ORDERED: Insulin Glargine 60 UNITS in Pre-Filled Syringe 1 EACH SC SCH (21:00)
[2018-04-07] MEDS: rOPINIRole HCl 0.25 MG TAB PO PRN (21:13)
[2018-04-08] MEDS: hydrOXYzine 25 MG TAB PO PRN (05:02)
[2018-04-08] MEDS: Insulin Regular 300 UNITS/3 ML VIAL SC PRN (05:03)
[2018-04-08 06:53] LABS: Anion Gap 8 mmol/L (10-20); BUN (Urea Nitrogen) 16 mg/dL (9.8-20.1); Calc. Creatinine Clearance 71 mL/min (70-130); Calcium 8.5 mg/dL (7.8-10.44); Carbon Dioxide 20 mmol/L (23-31); Chloride 106 mmol/L (98-107); Estimated GFR-MDRD 51; Glucose 298 mg/dL (80-115); Potassium 5.3 mmol/L (3.5-5.1); Sodium 129 mmol/L (136-145)
[2018-04-08 07:23] VITALS: BP 125/71; TEMP 98.2
[2018-04-08] MEDS: Atorvastatin Calcium 10 MG TAB PO SCH (08:12)
[2018-04-08] MEDS: Famotidine/PF 20 mg/2ml Vial SLOW IVP SCH (08:12)
[2018-04-08] MEDS: Rifaximin 550 MG TAB PO SCH (08:12)
[2018-04-08] MEDS: Escitalopram Oxalate 10 mg Tablet PO SCH (08:12)
[2018-04-08] MEDS: rOPINIRole HCl 0.25 MG TAB PO PRN (08:12)
[2018-04-08] MEDS ORDERED: Insulin NPH/Reg Insulin Hm 300 UNITS/3 ML VIAL SC SCH (09:00)
--- NOTE | 2018-04-08 10:07 | DIS ---
DATE OF ADMISSION: 04/05/2018 DATE OF DISCHARGE: 04/08/2018 PRIMARY CARE PHYSICIAN: Damian Moulton M.D. DISCHARGE DISPOSITION: Home. PRIMARY DISCHARGE DIAGNOSES: 1. Hepatic encephalopathy (hyperammonemia). 2. Acute kidney injury. SECONDARY DISCHARGE DIAGNOSES: Chronic thrombocytopenia, pancytopenia, obesity with BMI 34, hyperten jacquie, diabetes type 2, chronic hepatitis C, bipolar disorder, cirrhosis of liver with hypertension. PRIMARY PROCEDURE/OPERATION: None. RADIOLOGICAL INVESTIGATION: Abdomen ultrasound showed cirrhosis of liver with a scant amount of asci marjorie. SIGNIFICANT LABORATORY DATA: WBC 3.3, hemoglobin 9.1, platelets 63,000. INR 1.3. Sodium 129, potas sium 5.3, BUN 16, creatinine 1.28, calcium 8.5. Ammonia 77. DISCHARGE MEDICATIONS: Zofran 4 mg q.6 hourly p.r.n., Lexapro 10 mg p.o. daily, Lasix 40 mg p.o. b.i .d., Atarax 25 mg p.o. t.i.d. p.r.n., Lantus insulin 60 units in evening and Humalog insulin 70/30, 6 0 units a.c., omeprazole 20 mg p.o. daily, rifaximin 550 mg p.o. b.i.d., ropinirole 0.5 mg p.o. p.r.n ., Zocor 20 mg p.o. daily, tramadol 50 mg p.o. b.i.d. p.r.n., Ambien 5 mg p.o. at bedtime, lactulose 20 g p.o. q.i.d., Levaquin 500 mg p.o. daily for 3 days. CONTRAINDICATIONS: None. CODE STATUS: Full code. INPATIENT CONSULTANTS: Dr. Church and Dr. Gudino were following while in hospital. TEST RESULTS PENDING ON DISCHARGE: None. ALLERGIES: ASPIRIN, CODEINE, FENTANYL. DISCHARGE PLAN: Post hospital, the patient is instructed to follow with Dr. Damian Moulton in 1 we ek and the patient will make appointment with Dr. Jamaal Gudino as instructed. HOSPITAL COURSE: A 62-year-old female who was admitted by Dr. Gurmeet Preciado. The patient was admitted for high ammonia level and hepatic encephalopathy. The patient had only mild confusion. She was wo rried about her abdominal distention and ascites. On admission, we did abdominal ultrasound, which s howed only scant amount of fluid and that is why paracentesis was not done. She was complaining of v ague abdominal discomfort and that is why she was empirically treated with Levaquin for suspected SBP . Dr. Church was following while in hospital. We discontinued paracentesis. The patient was given ge ntle IV fluid because of mild renal insufficiency. The patient required lactulose increased dose whi le in hospital and her ammonia level was significantly improving. This patient has mainly ammonia pr oblem, but she was not having any significant encephalopathy while in hospital. We discussed with th e patient about low protein diet as well as how to titrate lactulose dose and continuation of rifaxim in. At this point, the patient does not have any hepatic encephalopathy, though ammonia level is 77. The patient is instructed to titrate lactulose dose at home to keep the bowel movement at least 4-6 daily basis. The patient will continue all her previous medication upon discharge and she will foll ow with primary care physician and GI. The patient was seen and examined at bedside today. All review of system reviewed with her and lillian saldana. PHYSICAL EXAMINATION: VITAL SIGNS: Currently, temperature 98.2, pulse 88, respiratory rate 16, saturation 96% on room air, blood pressure 125/71, weight 220 pounds. GENERAL: The patient is currently alert, awake, in no obvious acute distress. HEAD: Normocephalic, atraumatic. EYES: Pupils round and reactive to light. Extraocular muscle intact. ENT: Oropharynx within normal limits. LUNGS: Clear to auscultation without any rhonchi or rales. CARDIAC: S1, S2 regular without any murmur. ABDOMEN: Soft and benign without any tenderness. EXTREMITIES: No edema. NEUROLOGIC: Nonfocal examination. The patient is medically stable for discharge today.
== END 2018-04-08 11:25 | disposition home or self-care (01) | DRG 442 ==
LOC: ERS 05:58 → T4-A 09:53
PROVIDERS: ADMIT Internal Medicine; ATTEND Internal Medicine
DX: K72.00 Acute and subacute hepatic failure without coma (principal); N17.9 Acute kidney failure, unspecified; D61.818 Other pancytopenia; K70.31 Alcoholic cirrhosis of liver with ascites; B18.2 Chronic viral hepatitis C; D69.6 Thrombocytopenia, unspecified; E66.9 Obesity, unspecified; Z68.34 Body mass index [BMI] 34.0-34.9, adult; I10 Essential (primary) hypertension; E11.9 Type 2 diabetes mellitus without complications; F31.9 Bipolar disorder, unspecified; Z88.6 Allergy status to analgesic agent; Z88.5 Allergy status to narcotic agent; Z88.8 Allergy status to other drugs, medicaments and biological substances; Z79.899 Other long term (current) drug therapy; Z79.2 Long term (current) use of antibiotics
CPT/HCPCS: 36415; 36416; 49083; 76705; 80048; 80053; 82105; 82140; 83690; 85025; 85610; 85730; 93005; A4216; J1815; J1956; J2001; J2405; J2765; Q0162; S0028

== ENCOUNTER 2018-04-14 08:37 | Inpatient (IN) | payer MEDICARE, MEDICAID ==
[2018-04-14 09:22] LABS: Bilirubin Negative (Negative); Blood, Urine Moderate (Negative); Clarity CLEAR (Clear); Glucose, Urine (Dipstick) Negative (Negative); Leukocyte Negative (Negative); Nitrite Negative (Negative); Protein, Urine (Dipstick) 100 mg/dL (Neg-Trace); Specific Gravity, Urine 1.012 (1.002-1.036); Urobilinogen 0.2 mg/dL (0.2-1.0)
[2018-04-14 09:24] LABS: Bacteria/HPF None Seen HPF (None Seen); Hyaline Casts/LPF 4-6 HYALINE CAST LPF (0-3 Hyaline); RBC/HPF 21-50 HPF (0-3); WBC/HPF 0-3 HPF (0-3)
[2018-04-14 09:39] LABS: Renal Epithelial 0-3 HPF (0-3); Transitional Epithelial 0-3 HPF (0-3)
[2018-04-14 09:45] LABS: #Lymphocytes 0.9 thou/uL (1.20-3.40); #Monocytes 0.4 thou/uL (0.11-0.59); #Neutrophils 5.8 thou/uL (1.40-6.50); %Basophils 0.1 % (0.0-1.0); %Eosinophils 0.3 % (0.0-10.0); %Lymphocytes 12.2 % (21.0-51.0); %Neutrophils 82.3 % (42.0-75.0); Hemoglobin 12.1 g/dL (12.0-16.0); Mean Corpuscular HGB CONC 32.4 g/dL (32.0-36.0); Mean Corpuscular Hemoglobin 25.9 pg (27.0-31.0); Mean Platelet Volume 7.7 fL (7.4-10.4); Platelet Count 92 thou/uL (130-400); RBC Distribution Width 16.3 % (11.5-14.5); Red Blood Cell (RBC) Count 4.68 mill/uL (4.20-5.40)
[2018-04-14 09:53] LABS: ALT (SGPT) 27 U/L (8-55); AST (SGOT) 65 U/L (5-34); Albumin 2.9 g/dL (3.4-4.8); Alkaline Phosphatase 209 U/L (40-150); Anion Gap 15 mmol/L (10-20); BUN (Urea Nitrogen) 20 mg/dL (9.8-20.1); Bilirubin, Total 1.9 mg/dL (0.2-1.2); CK (CPK) 88 U/L (29-168); Calc. Creatinine Clearance 0 mL/min (70-130); Calcium 8.9 mg/dL (7.8-10.44); Carbon Dioxide 19 mmol/L (23-31); Chloride 105 mmol/L (98-107); Estimated GFR-MDRD 52; Globulin 4.3 g/dL (2.4-3.5); Glucose 107 mg/dL (80-115); Lipase 86 U/L (8-78); Potassium 5.6 mmol/L (3.5-5.1); Protein, Total 7.2 g/dL (6.0-8.3); Sodium 133 mmol/L (136-145)
[2018-04-14 09:57] LABS: CKMB 4.6 ng/mL (0-6.6)
[2018-04-14 10:00] LABS: Acetaminophen Less than 6.0 mcg/mL (10.0-30.0); Alcohol Less than 10 mg/dL (Less than 10); Salicylate Less than 8.0 mg/dL (15.0-30.0)
[2018-04-14] MEDS ORDERED: Nitroglycerin 2% Ointment 1 INCH/1 GM Packet ONE (10:08)
[2018-04-14 10:17] LABS: Cocaine Metabolite Screen Not Detected (NotDetected); Medtox Reader # READER 1; Methamphetamine Not Detected (NotDetected); Phencyclidine (PCP) Not Detected (NotDetected); THC/Cannabinoid Screen Not Detected (NotDetected)
[2018-04-14 10:18] LABS: Amphetamine Not Detected (NotDetected); Barbiturates Screen Not Detected (NotDetected); Benzodiazepine Screen Not Detected (NotDetected); Medtox Control Line Valid? VALID (VALID); Methadone Not Detected (NotDetected); Opiate Screen Not Detected (NotDetected); Oxycodone Screen Not Detected (NotDetected); Tricyclic Screen Not Detected (NotDetected)
[2018-04-14 10:27] LABS: INR-International Normal Ratio 1.2; PTT 33.1 SEC (22.9-36.1); Prothrombin Time 15.7 SEC (12.0-14.7)
[2018-04-14] MEDS ORDERED: Enoxaparin Sodium 100 MG/ML SYRINGE ONE (10:56)
--- NOTE | 2018-04-14 11:03 | RAD ---
PORTABLE CHEST 1 VIEW: Date: 04/14/18 Time: 1038 hours HISTORY: Chest pain. FINDINGS/IMPRESSION: The heart size is borderline. There are patchy infiltrates in the lung kam bilaterally, left great er than right. No pneumothoraces or large effusions are seen. POS: [facility]
[2018-04-14] MEDS ORDERED: Ondansetron ODT 4 MG TAB SL PRN (12:13)
[2018-04-14] MEDS ORDERED: Ondansetron HCl/PF 4 MG/2 ML Vial IVP PRN (12:13)
[2018-04-14 12:40] VITALS: BMI 34.3
[2018-04-14 13:14] LABS: Troponin I 1.158 ng/mL (< 0.028)
[2018-04-14] MEDS ORDERED: Dextrose 50% Abboject 50 ML SYRINGE SLOW IVP PRN (13:38)
[2018-04-14] MEDS ORDERED: Dextrose 5% in Water 1,000 ML IV PRN (13:38)
[2018-04-14] MEDS ORDERED: Acetaminophen 650 MG Suppository PR PRN (13:38)
[2018-04-14] MEDS ORDERED: Guaifenesin DM 100-10/5 ML UDCUP PO PRN (13:38)
[2018-04-14] MEDS ORDERED: Dextrose 5 % And 0.9 % NaCl 1,000 ML IV SCH (13:45)
[2018-04-14] MEDS ORDERED: cefTRIAXone\\ROCEPHIN 2 GM in Sodium Chloride 0.9% 100 ML IVPB SCH (14:00)
[2018-04-14 15:20] LABS: Hemoglobin 11.5 g/dL (12.0-16.0); Platelet Count 76 thou/uL (130-400)
[2018-04-14 15:48] LABS: Critical Call Chem Troponin I RESULT DECREASING; Troponin I 1.109 ng/mL (< 0.028)
--- NOTE | 2018-04-14 19:27 | HP ---
REASON FOR ADMISSION: Hepatic encephalopathy, non-ST elevation myocardial infarction versus demand ischemia, hypoglycemia. HISTORY OF PRESENT ILLNESS: The patient's son went to check on at her assisted living facility in [facility]. The patient did not open her room and son had a galindo and went inside to check on her. She was not herself. EMS was summoned. The patient had a blood sugar of 40 and was given dextrose IV and was brought to the emergency room. Currently, she is drifting in and out of consciousness. Her latest fingerstick glucoses around 219. Her initial labs also showed a troponin of 0.8 and was admitted to telemetry. Currently in the room, patient hardly has 10 seconds of alertness before she drifts back into sleep. The daughter who is here at bedside is worried that she may not be compliant with her diet and medications as she does not get any help in the afternoon and evenings. The home health with [facility] comes and helps her in the morning and gives her medications, but she is not sure if patient has been taking medications appropriately in the afternoon and evening. PAST MEDICAL AND SURGICAL HISTORY: History of cirrhosis diagnosed a year back secondary to prior history of alcohol use and fatty liver, prior history of regular paracentesis done almost every 2-3 weeks in [place], but not so frequent after arriving here from last 3-4 months. Hypertension, diabetes mellitus type 2, bipolar disorder, hysterectomy with tubal ligation, right shoulder repair, EGDs, colonoscopy, cataract surgery. PERSONAL HISTORY: Does not abuse alcohol or drugs. No history of smoking. FAMILY HISTORY: Mother of breast cancer at the age of 52. Father lived up to 80 years. CURRENT MEDICATIONS: Patient is on escitalopram 10 mg daily, Lasix 40 mg twice daily, Atarax 25 mg p.o. 3 times daily p.r.n., Lantus 60 units subcu q.p.m., Novolin 70/30, 60 units subcu before meals, omeprazole 20 mg daily, Zofran p.r.n., rifaximin 550 mg twice daily, ropinirole 0.5 mg p.o. daily, simvastatin 20 mg p.o. daily, Ultram p.r.n. for pain, zolpidem 5 mg p.o. at bedtime, lactulose 20 grams p.o. 4 times daily. ALLERGIES: ASPIRIN, CODEINE, FENTANYL, IODINE, MEPERIDINE, MIDAZOLAM, PENICILLIN, and SULFA. CODE STATUS: FULL. The daughter is the power of trademark attorney. REVIEW OF SYSTEMS: Cannot be accurately obtained as patient is drifting in and out of consciousness at present. PHYSICAL EXAMINATION: GENERAL: The patient is a 62-year-old female who is currently not in any acute distress. VITAL SIGNS: Blood pressure 110/74, pulse 90 per minute, respiratory rate 18 per minute, temperature 97.5 degrees Fahrenheit, saturating 100% on 2 liters nasal cannula. NECK: Supple, no elevated JVD. HEENT: Extraocular muscles intact. Pupils reacting to light. Oral cavity mucous membranes are dry. No exudates or congestion. CARDIOVASCULAR: S1, S2 heard. Regular rhythm. RESPIRATORY: Air entry 1+ bilateral. Scattered rhonchi plus bilateral. ABDOMEN: Soft, bowel sounds heard. No tenderness, rigidity or guarding. EXTREMITIES: No peripheral edema or calf tenderness. VASCULAR: Peripheral pulses 1+ bilateral, no ischemic ulcerations or gangrene. CENTRAL NERVOUS SYSTEM: No gross focal deficits noted. The patient is seen moving all extremities. She is not oriented at present and she barely has 10 seconds of attention span at present before drifting into sleep. PSYCHIATRIC: Cannot be assessed due to her cognitive status at present. LABORATORY AND X-RAY FINDINGS: Chest x-ray done shows mild cardiomegaly. The patient has patchy infiltrates in both lungs, likely aspiration, left side is worse than right. Urine drug screen is negative. White count of 7, H and H 12 and 37, platelet count is 92 with 82% neutrophils, MCV is 80. INR 1.2, PT 15, PTT 33, serum potassium is 5.6. Sodium is 133, serum bicarbonate 19, creatinine 1.25, serum glucose is 107, total bilirubin 1.9, AST 65, ALT 27, alkaline phosphatase 209. Troponin I 0.88, second set is 1.15. Ammonia levels of 78, CK-MB 4.6, albumin is 2.9. Lipase is 86. EKG done shows normal sinus rhythm at 89 beats per minute. There is poor R-wave progression seen. CLINICAL IMPRESSION AND PLAN: The patient will be admitted to telemetry for aspiration pneumonia, acute encephalopathy likely due to cirrhosis and liver failure, non-ST elevation myocardial infarction. She also has severe hypoglycemia on arrival, which is currently slowly improving. She will be placed on D5 normal saline at 75 mL per hour. We will place her on cefepime and Levaquin for now for suspected aspiration pneumonia. We will keep her n.p.o. until she wakes up completely. The patient will also be placed on Lovenox 100 mg subcu twice daily at least 1 or 2 doses until the trend of troponin is known. We will place her on a small dose of Lopressor as well for cardiac protection. Her overall prognosis is guarded. I have discussed her clinical findings, labs with the patient's daughter at bedside. Echo with 2D Doppler will be obtained. Currently, she will be FULL CODE for now. Patient has expressed at times that she is getting tired to her daughter and her clinical situation will be closely monitored for further directions from her. ANDREWD
[2018-04-14] MEDS: Ondansetron HCl/PF 4 MG/2 ML Vial IVP PRN (19:48)
[2018-04-14] MEDS: Rifaximin 550 MG TAB PO SCH ×2 (20:59→21:04)
[2018-04-14] MEDS: Metoprolol Tartrate 25 MG TAB PO SCH (20:59)
[2018-04-14] MEDS ORDERED: Enoxaparin Sodium 100 MG/ML SYRINGE SC SCH (21:00)
[2018-04-14] MEDS ORDERED: Cefepime 1 GM in Sodium Chloride 0.9% 100 ML IVPB SCH (21:00)
[2018-04-14] MEDS: traMADol HCl 50 MG TAB PO PRN (21:07)
[2018-04-15] MEDS: traMADol HCl 50 MG TAB PO PRN ×2 (05:41→20:34)
[2018-04-15] MEDS: Insulin Regular 300 UNITS/3 ML VIAL SC PRN ×3 (06:15→20:49)
--- NOTE | 2018-04-15 06:18 | CON ---
DATE OF CONSULTATION: 04/14/2018 REASON FOR CONSULTATION: Hepatic encephalopathy, history of cirrhosis. HISTORY OF PRESENT ILLNESS: Ms. Barraza is a 62-year-old female with a history of cirrhosis that her patrice jeronimo reported secondary to alcohol abuse in the past. She has previously been cared for in [facility], but a few months ago moved to this area. Her daughter notes, however, that she has not been doing well, who living on her own even though she is on assisted living center. She is bringing her back to live in [place] with her and she has had some issues with confusion, encephalopathy in the past as well as ascites, which for the time required paracentesis about every 2 weeks. More recently, she h as not had to have a paracentesis for about a month and is on diuretics at home; however, today her s on was coming to pick her up to bring her to some appointments when he found her confused. Apparentl y, EMS was summoned and her glucose was found to be 40. Apparently, she was unresponsive when EMS ar rived and when she was given the D50, she became alert and oriented. Presently, she states she feels fine. Her daughter states she has been mentating clearly and she wants to eat and is hungry. She h ad no dysuria, frequency, or urgency. No abdominal pain, melena, hematochezia, or hematemesis. No c ough or shortness of breath. PAST MEDICAL HISTORY: 1. Cirrhosis, reportedly secondary to alcohol in the past. 2. Fatty liver. 3. History of previous ascites, refractory requiring paracentesis every 2-3 weeks here about she has not had one in 2 months now. 4. Type 2 diabetes. 5. Bipolar disorder. PAST SURGICAL HISTORY: Include upper and lower endoscopies, cataract surgery, shoulder repair, tubal ligation. SOCIAL HISTORY: Patient denies alcohol or tobacco. The daughter confirms this. FAMILY HISTORY: Mother of breast cancer at age 52. MEDICATIONS AT HOME: Escitalopram; Lasix 40 mg b.i.d.; Atarax 3 times a day p.r.n.; Lantus insulin s ubcutaneous in the evening; Novolin 70/30, 60 before meals; omeprazole 20 mg daily; Zofran p.r.n.; ri faximin 550 b.i.d., ropinirole 0.5 mg daily, simvastatin 20 mg p.o. daily, Ultram p.r.n. for pain, zo lpidem 5 mg at bedtime, lactulose 20 grams p.o. 4 times daily. ALLERGIES: Include ASPIRIN, CODEINE, FENTANYL, IODINE, MEPERIDINE, MIDAZOLAM, PENICILLIN AND SULFA. CODE STATUS: FULL. Her daughter is power of securities attorney who is here with her. REVIEW OF SYSTEMS: The patient is awake, alert, and oriented. She denies any headache, fever, chill s, cough, shortness of breath, dysphagia, odynophagia, melena, hematochezia or hematemesis, chest dano n, dyspnea on exertion, abdominal pain, dysuria, frequency, urgency, or edema. PRESENT MEDICATIONS: Tramadol, Ultram, rifaximin 550 b.i.d., Zofran p.r.n., Lopressor, Solu-Medrol 4 0 IV q.6 hours, levothyroxine, Pepcid, Lovenox, levofloxacin, D5W, Plavix, Rocephin, cefepime. PHYSICAL EXAMINATION: VITAL SIGNS: Temperature is 98.7, pulse 51, blood pressure is 94/49 to 109/64. GENERAL: She is alert and oriented to person, place, and time. LUNGS: Clear. HEART: Regular rate and rhythm without clicks or murmurs. ABDOMEN: Soft, nontender, without palpable hepatosplenomegaly. EXTREMITIES: No clubbing, cyanosis, or edema. ABDOMEN: Protuberant and soft. There is some shifting dullness and fluid wave, is nontender. LABORATORY DATA: Hemoglobin is 12 at 9:00, it was 11.5 at 1511 hours. White count 7, platelet count is 92,000. These are very similar to admission. Labs previously showed hemoglobin 8-9. INR is 1.2 , sodium 133, potassium 5.6 on admission, bicarbonate 19, chloride 105, BUN and creatinine are 20 and 1.25, bilirubin 1.9, AST 65, ALT 29, alkaline phosphatase 209. Ammonia 78 in this hospital of 68. Albumin is 2.9, globulin is 4.3, total protein 7.2. Lipase is 86. AFP was 3.7. Urinalysis sh owed 20-50 red blood cells, 0-3 white blood cells, 4-6 squamous, no bacteria. Drug screen was not pe rformed. Hepatitis C antibody is positive on 09/21/2016. Hepatitis C RNA undetectable on 04/14/2018 . Urine drug screen was negative. Alcohol was negative. IMAGING: Chest x-ray normal, borderline heart size. Ultrasound, no evidence of ascites on 8. On 01/08/2018, CAT scan of abdomen and pelvis, cirrhosis with mild ascites. ASSESSMENT: 1. Confusion, seem to have been related to hypoglycemia and resolved with giving her dextrose. She h as no overt encephalopathy, presently. 2. History of hepatic encephalopathy in the past. Her ammonia does stay at elevated level. She is supposed to be on lactulose and rifaximin. The daughter notes she takes this, but she lives in [facility] and her medicines. There are no overt signs of infection or GI bleed to exacerbate encephalopathy at this time. There are no signs of liver failure to cause hypoglycemia. On her medi cations, there are several medicines that could exacerbate encephalopathy. Atarax was one, this shou ld be stopped. Antihistamines are well known to cause sedation and exacerbate encephalopathy. Addit ionally, the ropinirole is questionable and probably should be stopped and zolpidem at bedtime, it sh ould be stopped. These are all medicines that will exacerbate hepatic encephalopathy and should not be used in cirrhotic. 3. With regard to the patient's ascites and edema, I think probably she is a little bit over diurese d right now. She seems dry with elevated hemoglobin, but relatively baseline of mild elevated BUN an d creatinine. She is on 40 mg of Lasix daily and may be reasonable to think about backing off on antony t a bit. 4. I agree with empiric antibiotic coverage, although I do think she needs three different antibioti cs, however, I adjust that just one to cover for SBP and if she improves rapidly, I would stop that a nd she could be ultrasound of the next day or so to see if there is significant ascites and tap that if necessary. 5. No signs of gastrointestinal bleeding. No overt signs of infection. Apparently, there was a fee ling that she has had a non-ST elevation myocardial infarction. Her troponin 1.01, I am not sure the significance of that, but I think I would involve Cardiology before committing her to a lifelong brain atment with Plavix, which is going to be fraught with complications in a cirrhotic and low platelet c ount.
[2018-04-15 06:45] LABS: ALT (SGPT) 24 U/L (8-55); AST (SGOT) 52 U/L (5-34); Albumin 2.5 g/dL (3.4-4.8); Alkaline Phosphatase 189 U/L (40-150); Anion Gap 14 mmol/L (10-20); BUN (Urea Nitrogen) 42 mg/dL (9.8-20.1); Bilirubin, Total 0.7 mg/dL (0.2-1.2); Calc. Creatinine Clearance 29 mL/min (70-130); Calcium 8.3 mg/dL (7.8-10.44); Carbon Dioxide 18 mmol/L (23-31); Chloride 104 mmol/L (98-107); Estimated GFR-MDRD 19; Globulin 3.9 g/dL (2.4-3.5); Glucose 448 mg/dL (80-115); Potassium 6.1 mmol/L (3.5-5.1); Protein, Total 6.4 g/dL (6.0-8.3); Sodium 130 mmol/L (136-145)
[2018-04-15] MEDS ORDERED: Sodium Chloride 0.9% 1,000 ML IV SCH (07:30)
[2018-04-15 07:40] LABS: #Lymphocytes 0.6 thou/uL (1.20-3.40); #Monocytes 0.2 thou/uL (0.11-0.59); #Neutrophils 6.9 thou/uL (1.40-6.50); %Lymphocytes 7.6 % (21.0-51.0); %Monocytes 3.1 % (0.0-10.0); %Neutrophils 89.3 % (42.0-75.0); Hemoglobin 9.8 g/dL (12.0-16.0); Mean Corpuscular HGB CONC 33.1 g/dL (32.0-36.0); Mean Corpuscular Hemoglobin 26.4 pg (27.0-31.0); Mean Corpuscular Volume 79.6 fL (78.0-98.0); Mean Platelet Volume 8.5 fL (7.4-10.4); Platelet Count 65 thou/uL (130-400); RBC Distribution Width 16.3 % (11.5-14.5); Red Blood Cell (RBC) Count 3.71 mill/uL (4.20-5.40); White Blood Cell (WBC) Count 7.7 thou/uL (4.8-10.8)
[2018-04-15 08:07] LABS: Bite Cells SLIGHT = 2-5 cells (100X) (0-1/hpf); MDiff Complete? YES; PLT Morphology Comment Appears Decreased; Polychromasia SLIGHT = 2-3 cells (100X) (0-2/hpf); Schistocytes SLIGHT = 2-5 cells (100X) (0-1/hpf)
[2018-04-15] MEDS ORDERED: Clopidogrel Bisulfate 75 MG TAB PO SCH (09:00)
[2018-04-15] MEDS: Escitalopram Oxalate 10 mg Tablet PO SCH (09:18)
[2018-04-15] MEDS: Famotidine/PF 20 mg/2ml Vial SLOW IVP SCH (09:18)
[2018-04-15] MEDS: Metoprolol Tartrate 25 MG TAB PO SCH ×2 (09:18→20:35)
[2018-04-15] MEDS: Insulin Glargine 30 UNITS in Pre-Filled Syringe 1 EACH SC SCH ×2 (09:19→20:32)
--- NOTE | 2018-04-15 10:10 | PDOC.PN ---
- Subjective Encounter Start Date: 04/15/18 Encounter Start Time: 08:25 Subjective: no sob, is oriented well -: no chest pain or palp -: small bm yesterday, none today - Objective Resuscitation Status: Resuscitation Status FULL:Full Resuscitation MAR Reviewed: Yes Vital Signs & Weight: Vital Signs (12 hours) Temp Pulse Resp BP Pulse Ox 04/15/18 04:00 99.2 F 85 20 121/58 L 98 Weight Weight 216 lb 3.2 oz I&O: 04/14/18 04/15/18 04/16/18 06:59 06:59 06:59 Intake Total 120 Output Total 400 Balance -280 Result Diagrams: 04/15/18 06:56 04/15/18 05:21 Additional Labs: Accuchecks 04/14/18 04/14/18 04/14/18 23:24 18:12 12:19 POC Glucose 342 H 290 H 219 H 04/14/18 04/14/18 10:55 08:55 POC Glucose 164 H 109 Phys Exam - Physical Examination HEENT: PERRLA, moist MMs Neck: no JVD, supple Respiratory: no wheezing, no rales Cardiovascular: RRR, no significant murmur Gastrointestinal: soft, non-tender, positive bowel sounds Musculoskeletal: no edema, pulses present Neurological: non-focal, moves all 4 limbs Psychiatric: normal affect, A&O x 3 Dx/Plan (1) Acute kidney failure Status: Acute (2) Demand ischemia of myocardium Code(s): I24.8 - OTHER FORMS OF ACUTE ISCHEMIC HEART DISEASE Status: Acute (3) Hyperkalemia Code(s): E87.5 - HYPERKALEMIA Status: Acute (4) Hypoglycemia Code(s): E16.2 - HYPOGLYCEMIA, UNSPECIFIED Status: Resolved (5) Alcoholic cirrhosis of liver with ascites Code(s): K70.31 - ALCOHOLIC CIRRHOSIS OF LIVER WITH ASCITES Status: Chronic (6) Bipolar disorder Code(s): F31.9 - BIPOLAR DISORDER, UNSPECIFIED Status: Chronic Qualifiers: Active/Remission status: remission status unspecified Qualified Code(s): F31.9 - Bipolar disorder, unspecified (7) Chronic hepatitis C Code(s): B18.2 - CHRONIC VIRAL HEPATITIS C Status: Chronic Qualifiers: Hepatic coma status: without hepatic coma (8) DM2 (diabetes mellitus, type 2) Status: Chronic Qualifiers: Diabetes mellitus correction insulin use: with correction use Diabetes mellitus complication status: with unspecified complications Qualified Code(s) : E11.8 - Type 2 diabetes mellitus with unspecified complications; Z79.4 - peoplesoft crm developer (current) use of insulin (9) Hypertension Code(s): I10 - ESSENTIAL (PRIMARY) HYPERTENSION Status: Chronic Qualifiers: Hypertension type: essential hypertension Qualified Code(s): I10 - Essential (primary) hypertension (10) Obesity (BMI 30-39.9) Code(s): E66.9 - OBESITY, UNSPECIFIED Status: Chronic (11) Thrombocytopenia Code(s): D69.6 - THROMBOCYTOPENIA, UNSPECIFIED Status: Chronic - Plan iv hydration, kayexalate x2 doses -: bmp at 4pm and in am to check electrolytes -: dc lactulose and diuretics for now -: encephalopathy is resolved likely due to hypoglycemia and meds -: PT to mobilize as tolerated, is on levaquin * . fingerstick glucose betwn 290-448, add lantus 30u bid Nephrology consultation Metabolic acidosis sec to arf. Will need skilled unit due to multiple underlying conditions and unable to care for self at asst living. Review of Systems - Medications/Allergies Allergies/Adverse Reactions: Allergies Allergy/AdvReac Type Severity Reaction Status Date / Time codeine Allergy Verified 02/08/18 08:28 fentanyl Allergy Verified 02/08/18 08:28 Iodine and Iodide Containing Allergy Verified 02/08/18 08:28 Produc meperidine [From Demerol] Allergy Verified 02/08/18 08:28 midazolam [From Versed] Allergy Verified 02/08/18 08:28 Penicillins Allergy Verified 02/08/18 08:28 Sulfa (Sulfonamide Allergy Verified 02/08/18 08:28 Antibiotics) Medications: Current Medications Acetaminophen (Tylenol) 650 mg PO Q4H PRN PRN Reason: Headache/Fever or Pain Acetaminophen (Tylenol) 650 mg MT Q4H PRN PRN Reason: Headache/Fever or Pain Clopidogrel Bisulfate (Plavix) 75 mg PO DAILY [facility] Last Admin: 04/15/18 09:18 Dose: 75 mg Dextrose/Water (Dextrose 50%) 25 gm SLOW IVP PRN PRN PRN Reason: Hypoglycemia Escitalopram Oxalate (Lexapro) 10 mg PO DAILY [facility] Last Admin: 04/15/18 09:18 Dose: 10 mg Famotidine (Pepcid) 20 mg SLOW IVP DAILY [facility] Last Admin: 04/15/18 09:18 Dose: 20 mg Glucagon (Glucagon) 1 mg IM PRN PRN PRN Reason: Hypoglycemia Guaifenesin/Dextromethorphan (Robitussin Dm) 15 ml PO Q4H PRN PRN Reason: Cough Dextrose/Water (D5w) 1,000 mls @ 0 mls/hr IV .Q0M PRN PRN Reason: Hypoglycemia Sodium Chloride (Normal Saline 0.9%) 1,000 mls @ 125 mls/hr IV .Q8H [facility] Levofloxacin 500 mg/ Device 100 mls @ 100 mls/hr IVPB Q48H [facility] Last Admin: 04/15/18 09:19 Dose: 100 mls Insulin Glargine 30 units/ (Miscellaneous Medication) 0.3 mls @ 0 mls/hr SC BID [facility] Last Admin: 04/15/18 09:19 Dose: 0.3 mls Insulin Human Regular (Humulin R) 0 units SC .MILD SLIDING PRN; Protocol PRN Reason: MILD SLIDING SCALE Last Admin: 04/15/18 06:15 Dose: 6 unit Insulin Human Regular (Humulin R) 0 units SC .BEDTIME SLIDING SC PRN; Protocol PRN Reason: BEDTIME SLIDING SCALE Metoprolol Tartrate (Lopressor) 25 mg PO BID [facility] Last Admin: 04/15/18 09:18 Dose: 25 mg Ondansetron HCl (Zofran) 4 mg IVP Q6H PRN PRN Reason: Nausea/Vomiting Last Admin: 04/14/18 19:48 Dose: 4 mg Sodium Chloride (Flush - Normal Saline) 10 ml IVF Q12HR [facility] Last Admin: 04/15/18 09:20 Dose: 10 ml Sodium Chloride (Flush - Normal Saline) 10 ml IVF PRN PRN PRN Reason: Saline Flush Sodium Polystyrene Sulfonate (Kayexelate Oral Susp 15 Gm/60 Ml) 30 gm PO Q6H [facility] Stop: 04/15/18 14:01 Last Admin: 04/15/18 09:14 Dose: 30 ml Tramadol HCl (Ultram) 50 mg PO BID PRN PRN Reason: Pain 4-6 Last Admin: 04/15/18 05:41 Dose: 50 mg
--- NOTE | 2018-04-15 11:54 | PQF ---
CLINICAL DOCUMENTATION IMPROVEMENT CLARIFICATION FORM: ICD-10 Updated PLEASE DO AN ADDENDUM TO THE PROGRESS NOTE WITH ANY DOCUMENTATION UPDATES OR ADDITIONS AND CARRY THROUGH TO DC SUMMARY. THANK YOU. DATE: 04/15/18 ATTN: DR. VELASQUEZ Please exercise your independent, professional judgment in responding to the clarification form. Clinical indicators are provided on the bottom of this form for your review Please check appropriate box(s): AMI TYPE: [ ] NSTEMI [ x ] DEMAND ISCHEMIA [ ] OTHER [ ] UNABLE TO DETERMINE In addition, please specify: Present on Admission (POA): [x ] Yes [ ] No [ ] Unable to determine CLINICAL INDICATORS - SIGNS / SYMPTOMS / LABS ER NOTE: "NSTEMI" H&P 04/14: "NON-ST ELEVATION MYOCARDIAL INFARCTION PROGRESS NOTE 04/15: "DEMAND ISCHEMIA OF MYOCARDIUM" TROPONIN 04/14: 0.880 / 1.158 / 1.109 RISKS: HYPERTENSION ACUTE RENAL FAILURE TREATMENT: LOVENOX (ER-04/14) ASPIRIN (ER) NITRO-BID TRANSDERMAL (ER) LOPRESSOR (04/14-PRESENT) PLAVIX (STARTED 04/15) ECHOCARDIOGRAM (ORDERED 04/15) CARDIOLOGY CONSULT (04/14) TELEMETRY MONITORING SAP [employer] Crystal Reports Winform Viewer (This form is maintained as a part of the permanent medical record) 2014 [employer]. All Rights Reserved [email or web address] Office: [phone] [facility]LANDPhilippe
--- NOTE | 2018-04-15 12:21 | PQF ---
CLINICAL DOCUMENTATION IMPROVEMENT CLARIFICATION FORM: ICD-10 Updated PLEASE DO AN ADDENDUM TO THE PROGRESS NOTE WITH ANY DOCUMENTATION UPDATES OR ADDITIONS AND CARRY THROUGH TO DC SUMMARY. THANK YOU. DATE: 04/15/18 ATTN : DR. VELASQUEZ Please exercise your independent, professional judgment in responding to the clarification form. Clinical indicators are provided on the bottom of this form for your review Please check appropriate box(s) to clarify if the following diagnosis has been ruled in or ruled out: ASPIRATION PNEUMONIA [ x ] Ruled in diagnosis [ x] Continue to treat [ ] Resolved [ ] Ruled out diagnosis [ ] Cannot rule out diagnosis [ ] Other diagnosis [ ] Unable to determine In addition, please specify: Present on Admission (POA): [ x ] Yes [ ] No [ ] Unable to determine For continuity of documentation, please document condition throughout progress notes and discharge summary. Thank You. CLINICAL INDICATORS - SIGNS / SYMPTOMS / LABS H&P 04/14: "WE WILL PLACE HER ON CEFEPIME AND LEVAQUIN FOR NOW FOR THE ASPIRATION PNEUMONIA." CHEST XR 04/14: PATCHY INFILTRATES IN THE LUNG LEARY BILATERALLY, LEFT GREATER THAN RIGHT" NURSES NOTE 04/14: "COARSE BREATH SOUNDS" RISKS: FOUND UNRESPONSIVE PER EMS (ER NOTE) TREATMENT: CHEST XRAY IV LEVAQUIN (04/14-) IV CEFEPIME (04/14-04/15) IV ROCEPHIN (04/14-04/15) METHYLPREDNISOLONE (04/14-04/15) SUPPLEMENTAL O2 (ER-PRESENT) SAP Physics Technician Crystal Reports Winform Viewer(This form is maintained as a part of the permanent medical record) 2014 [employer]. All Rights Reserved LUCIA [email or web address] Office: [phone] [place]
[2018-04-15 12:54] LABS: Glucose Accucheck Confirmation 624 mg/dl (80-115)
[2018-04-15 16:52] LABS: Anion Gap 14 mmol/L (10-20); BUN (Urea Nitrogen) 47 mg/dL (9.8-20.1); Calc. Creatinine Clearance 29 mL/min (70-130); Calcium 8.3 mg/dL (7.8-10.44); Carbon Dioxide 17 mmol/L (23-31); Chloride 105 mmol/L (98-107); Estimated GFR-MDRD 18; Glucose 504 mg/dL (80-115); Sodium 131 mmol/L (136-145)
[2018-04-15] MEDS: Sodium Bicarbonate 75 MEQ in Sodium Chloride 0.45% 1,000 ML IV SCH (17:07)
--- NOTE | 2018-04-15 19:44 | CON ---
DATE OF CONSULTATION: 04/15/2018 CONSULTING PHYSICIAN: Dr. Brady Gaitan. REQUESTING PHYSICIAN: Dr. Leblanc. REASON FOR CONSULTATION: Acute kidney injury and hyperkalemia. IMPRESSION: 1. Acute kidney injury, query cause. This is probably hemodynamically mediated given the blood pressure of this patient dropping down to the 90s yesterday. Otherwise, no clear cut etiology is noted. 2. Hyperkalemia, likely in the context of reduced GFR though the degree of hyperkalemia seems out of proportion to the degree of acute kidney injury. 3. Metabolic acidosis. PLAN: 1. IV fluid rehydration with a bicarb based infusion. 2. Renally dose all medications and avoid potentially nephrotoxic agents. HISTORY: This is a 62-year-old female patient, who was brought in with mental status change, non-ST elevation TN, noted to be hypoglycemic and felt to be responsible for this mental status change plus or minus hepatic encephalopathy. Patient presented with a creatinine that is slightly above 1. However, over the course of hospitalization, creatinine has gone up to above 3. In addition, also the patient noted with elevated potassium above 6. As a result of these findings, decision has been taken to involve Renal in the management of this case. PAST MEDICAL HISTORY: Significant for cirrhosis due to alcohol usage, status post multiple paracenteses in the past, hypertension, type 2 diabetes, bipolar disorder, hysterectomy. FAMILY HISTORY: Significant for cancer. SOCIAL HISTORY: No alcohol, no tobacco, no illicit drug use. MEDICATIONS: Reviewed as documented on [employer]. ALLERGIES: ASPIRIN, CODEINE, FENTANYL, IODINE, MEPERIDINE, MIDAZOLAM, PENICILLIN, and SULFA. REVIEW OF SYSTEMS: As documented in the body of the history. All the other systems were reviewed and found not to be significantly related to the presenting illness. PHYSICAL EXAMINATION: GENERAL: The patient was found not to be in any obvious distress. VITAL SIGNS: Afebrile, temperature 99.3, pulse 88, respiration rate of 18, O2 sat 100% on 2 liters with blood pressure 121/58. HEENT: Unremarkable with moist oral mucosa. No conjunctival injection or icterus NECK: Supple. CARDIOVASCULAR SYSTEM: First and second heart sounds were heard. RESPIRATORY SYSTEM: Clear to auscultation. DIGESTIVE SYSTEM: Revealed a benign abdomen with positive bowel sounds. EXTREMITIES: No peripheral edema. SKIN: No new gross rash. LYMPHATICS: No peripheral lymphadenopathy. SUMMARY: A 62-year-old woman, who presented here with mental status change in the context of hypoglycemia, now experiencing worsening renal failure. Thank you for this consultation. We will follow with you. ANDREWD
[2018-04-15] MEDS: Rifaximin 550 MG TAB PO SCH (20:34)
[2018-04-15] MEDS: Ondansetron HCl/PF 4 MG/2 ML Vial IVP PRN (20:35)
[2018-04-16] MEDS ORDERED: Insulin Regular 300 UNITS/3 ML VIAL SC SCH (01:15)
--- NOTE | 2018-04-16 03:13 | PRG ---
DATE OF SERVICE: 04/15/2018 SUBJECTIVE: Ms. Barraza has no acute complaints at this time. Her mental status is improved. OBJECTIVE: VITAL SIGNS: Temperature 98.5, pulse 87, blood pressure 154/70. GENERAL: She is in no acute distress. She is oriented x3, but stimulated. LUNGS: Clear to auscultation bilaterally. HEART: Regular rate and rhythm. ABDOMEN: Distended and tender diffusely. Her bowel sounds are present. EXTREMITIES: No lower extremity edema. IMPRESSION: 1. Altered mental status secondary to hypoglycemia, improved. 2. Chronic hepatic encephalopathy with elevated ammonia levels and she does need to remain on treatm ent chronically for this with lactulose scheduled and Xifaxan. This will be restarted. 3. Acute renal failure. 4. Cirrhosis of the liver secondary to past alcohol and fatty liver. She does not have chronic hepa titis C. 5. Ascites with diffuse abdominal tenderness and distention. She is empirically on ceftriaxone. We will plan for paracentesis tomorrow if there is adequate fluid by ultrasound. RECOMMENDATIONS: 1. Restart lactulose 20 grams 3 times daily. 2. Restart Xifaxan 550 mg twice daily. 3. Ultrasound guided paracentesis tomorrow with fluid to be sent for cell count and culture. 4. Follow trend of the renal function.
[2018-04-16] MEDS: Sodium Bicarbonate 75 MEQ in Sodium Chloride 0.45% 1,000 ML IV SCH ×2 (03:22→13:40)
[2018-04-16 05:59] LABS: Anion Gap 11 mmol/L (10-20); BUN (Urea Nitrogen) 50 mg/dL (9.8-20.1); Calc. Creatinine Clearance 32 mL/min (70-130); Calcium 7.7 mg/dL (7.8-10.44); Carbon Dioxide 22 mmol/L (23-31); Chloride 103 mmol/L (98-107); Estimated GFR-MDRD 21; Glucose 401 mg/dL (80-115); Potassium 4.2 mmol/L (3.5-5.1); Sodium 132 mmol/L (136-145)
[2018-04-16] MEDS: Insulin Regular 300 UNITS/3 ML VIAL SC PRN ×2 (06:51→15:42)
[2018-04-16] MEDS: traMADol HCl 50 MG TAB PO PRN (08:49)
[2018-04-16] MEDS: Famotidine/PF 20 mg/2ml Vial SLOW IVP SCH (08:49)
[2018-04-16] MEDS: Metoprolol Tartrate 25 MG TAB PO SCH ×2 (08:49→20:52)
[2018-04-16] MEDS: Insulin Glargine 30 UNITS in Pre-Filled Syringe 1 EACH SC SCH ×2 (11:02→21:45)
[2018-04-16] MEDS: Rifaximin 550 MG TAB PO SCH ×2 (11:03→20:52)
[2018-04-16] MEDS: Escitalopram Oxalate 10 mg Tablet PO SCH (11:03)
[2018-04-16 12:01] LABS: Body Fluid Source Ascites Body Fluid; Clarity Hazy (Clear)
[2018-04-16 12:02] LABS: BF Color Yellow; Tube # EDTA
[2018-04-16 12:04] LABS: BF RBC Count - Manual 770 /cumm; BF WBC/Nonhematics Ct. - Manua 133 /cumm
[2018-04-16 12:44] LABS: BF Segmented Neutrophils 5 %; Cell Count Non Hematic 70 %; Lymphocytes 25 %
--- NOTE | 2018-04-16 13:25 | PDOC.PN ---
- Subjective Encounter Start Date: 04/16/18 Encounter Start Time: 13:25 Says she feels better. Says she doesn't want to leave the hospital until she is well. Requests a sleeping pill (but dosing off as she asks) - Objective Resuscitation Status: Resuscitation Status FULL:Full Resuscitation Vital Signs & Weight: Vital Signs (12 hours) Temp Pulse Resp BP Pulse Ox 04/16/18 08:50 98.5 F 68 18 143/68 H 93 L 04/16/18 08:00 93 L 04/16/18 04:00 98.2 F 77 14 139/65 96 Weight Weight 224 lb 3.2 oz I&O: 04/15/18 04/16/18 04/17/18 06:59 06:59 06:59 Intake Total 120 3260 Output Total 400 800 Balance -280 2460 Result Diagrams: 04/15/18 06:56 04/16/18 05:09 Additional Labs: Accuchecks 04/16/18 04/16/18 04/16/18 11:02 06:26 00:04 POC Glucose 197 H 362 H 517 H 04/15/18 18:53 POC Glucose 513 H Phys Exam - Physical Examination Constitutional: NAD dosing several times during our conversation. Respiratory: no wheezing, no rales, no rhonchi Cardiovascular: RRR, no significant murmur Gastrointestinal: soft, no distention Very mildly, diffusely tender Musculoskeletal: no edema Dx/Plan (1) Acute hepatic encephalopathy Code(s): K72.00 - ACUTE AND SUBACUTE HEPATIC FAILURE WITHOUT COMA Status: Acute Comment: Back on lactulose and Xifaxan. Still a little groggy today, but improved. (2) Hypoglycemia Code(s): E16.2 - HYPOGLYCEMIA, UNSPECIFIED Status: Resolved Comment: Now very hyperglycemic. (3) Acute kidney failure Status: Acute Comment: Nephrology consulted. Improved creatinine today with some fluids, but still not at baseline. (4) Demand ischemia of myocardium Code(s): I24.8 - OTHER FORMS OF ACUTE ISCHEMIC HEART DISEASE Status: Acute (5) Alcoholic cirrhosis of liver with ascites Code(s): K70.31 - ALCOHOLIC CIRRHOSIS OF LIVER WITH ASCITES Status: Chronic Comment: Paracentesis today. One liter per patient. Far less than she has had in the past. (6) Bipolar disorder Code(s): F31.9 - BIPOLAR DISORDER, UNSPECIFIED Status: Chronic Qualifiers: Active/Remission status: remission status unspecified Qualified Code(s): F31.9 - Bipolar disorder, unspecified (7) Chronic hepatitis C Code(s): B18.2 - CHRONIC VIRAL HEPATITIS C Status: Chronic Qualifiers: Hepatic coma status: without hepatic coma (8) DM2 (diabetes mellitus, type 2) Status: Chronic Qualifiers: Diabetes mellitus superintendent terminal insulin use: with superintendent terminal use Diabetes mellitus complication status: with unspecified complications Qualified Code(s) : E11.8 - Type 2 diabetes mellitus with unspecified complications; Z79.4 - terminal worker (current) use of insulin Comment: Very hyperglycemic. Adjusting insulin. (9) Hypertension Code(s): I10 - ESSENTIAL (PRIMARY) HYPERTENSION Status: Chronic Qualifiers: Hypertension type: essential hypertension Qualified Code(s): I10 - Essential (primary) hypertension (10) Obesity (BMI 30-39.9) Code(s): E66.9 - OBESITY, UNSPECIFIED Status: Chronic (11) Hyperkalemia Code(s): E87.5 - HYPERKALEMIA Status: Acute - Plan * On baseline meds and she is improved. Follow up on paracentesis fluid culture , but looks benign. If OK with GI, can stop the Levaquin. * Encephalopathy improved. * Renal function slightly better. Recheck in am. * If renal function improved, may be able to discharge soon. Says she will go stay wit her daughter in [place] when she leaves here.
[2018-04-16] MEDS: Ondansetron HCl/PF 4 MG/2 ML Vial IVP PRN (14:24)
--- NOTE | 2018-04-16 15:16 | PDOC.CTH ---
Cardiology Progress Note - Subjective Had paracentesis earlier today. No chest pain, tightness ,pressure. Only complaint is nausea. - Objective Vital Signs Temp Pulse Resp BP Pulse Ox 04/16/18 11:00 98.2 F 66 16 137/60 04/16/18 08:50 98.5 F 68 18 143/68 H 93 L 04/16/18 08:00 93 L 04/16/18 04:00 98.2 F 77 14 139/65 96 Weight 224 lb 3.2 oz 04/15/18 04/16/18 04/17/18 06:59 06:59 06:59 Intake Total 120 3260 Output Total 400 800 Balance -280 2460 - Physical Examination General/Neuro: alert & oriented x3, NAD Neck: no JVD present Lungs: CTA, unlabored respirations Heart: RRR Abdomen: NT/ND Extremities: other: (no edema) - Telemetry Telemetry Rhythm: NSR - Labs Result Diagrams: 04/15/18 06:56 04/16/18 05:09 Troponin/CKMB CK-MB (CK-2) 4.6 ng/mL (0-6.6) 04/14/18 09:22 Troponin I 1.109 ng/mL (< 0.028) H* 04/14/18 15:11 - Assessment/Plan 1. NSTEMI, demand ischemia likely 2. Normal LV function. 3. Alcoholic cirrhosis 4. Acute renal failure 5. AMS secondary to hypoglycemia 6. Chronic hepatic encephalopathy. PLAN: - CV stable. - No new recs. - Will follow from a distance over the weekend, call if needed.
--- NOTE | 2018-04-16 15:19 | ULT ---
ULTRASOUND GUIDED PARACENTESIS: HISTORY: Ascites. Increased distention. Diagnostic paracentesis is requested. COMPARISON: 09/19/2016 FINDINGS: Successful ultrasound guided paracentesis. A total of 750 mL of slightly yellow colored, cloudy flui d was removed. No immediate or post procedure complications. TECHNIQUE: Consent obtained to perform an ultrasound-guided paracentesis. The patient's abdomen was evaluated. The right lower quadrant was deemed appropriate. It was prepped and draped in a sterile fashion. L idocaine 1% buffered with sodium bicarbonate was used for local anesthesia. Under ultrasound guidanc e, a 5 Vincentian, 7 cm Yueh catheter was advanced into the peritoneal space, and a total of 750 mL of sl ightly yellow colored ascites was aspirated. No immediate or post procedure complications. The ramos ent tolerated the procedure well. IMPRESSION: Successful ultrasound guided paracentesis. POS: [facility]
--- NOTE | 2018-04-16 17:29 | PRG ---
DATE OF SERVICE: 04/16/2018 SUBJECTIVE: Ms. Barraza has some chronic nausea. She is much more awake and alert today. She is orie nted x3. Has no asterixis. OBJECTIVE: LUNGS: Clear to auscultation bilaterally. HEART: Regular rate and rhythm. ABDOMEN: Soft, minimal tenderness. Bowel sounds are present. EXTREMITIES: No lower extremity edema. LABORATORY DATA: Fluid white blood cell count from paracentesis is 133, creatinine 2.79. INR 1.2, p latelets 65, hemoglobin 9.8. White blood cell count 7.7. IMPRESSION: 1. Cirrhosis of the liver secondary to past alcohol and fatty liver disease. 2. Ascites. She underwent paracentesis today with 750 mL of fluid removed. Fluid studies are negat shana for SBP. She is really nontender today. There is no evidence of SBP and the levofloxacin can be discontinued at this point from a GI standpoint. 3. Chronic hepatic encephalopathy, currently on lactulose 30 mL 3 times a day and rifaximin 550 mg t wice daily. She has already had four bowel movements today. I will back the lactulose off to b.i.d. instead of 3 times daily. 4. She was admitted with altered mental status secondary to hypoglycemia which is resolved. 5. Acute renal failure. The reason for this is not clear at this point. She has not been on diuret ics. 6. Elevated troponin on admission in the setting of demand ischemia and acute renal failure. 7. Anemia. Her hemoglobin is noted to have decreased from admission to today. There has been no ov ert gastrointestinal bleeding. This could be related to the renal insufficiency. We will recheck e trend of this tomorrow. RECOMMENDATIONS: 1. Okay to stop levofloxacin from a GI perspective. 2. Continue rifaximin. 3. Reduce the lactulose to twice daily. 4. Recheck hemoglobin in the morning. 5. Follow trend of the renal function.
--- NOTE | 2018-04-16 17:53 | PRG ---
DATE OF SERVICE: 04/16/2018 HISTORY: The patient is seen and examined with no new complaint noted with the following. PHYSICAL EXAMINATION: VITAL SIGNS: Afebrile with temperature 98, pulse 66, respiratory rate 17, O2 sat 93% with blood pres sure 138/76. HEENT: Unremarkable with moist oral mucosa. Neck is supple. No conjunctival injection or icterus. CARDIOVASCULAR SYSTEM: First and second heart sounds were heard. RESPIRATORY SYSTEM: Clear to auscultation. DIGESTIVE SYSTEM: Revealed a benign abdomen with positive bowel sounds. EXTREMITIES: No peripheral edema. SKIN: No new gross rash. LYMPHATICS: No peripheral lymphadenopathy. LABORATORY INVESTIGATION: Revealed a creatinine down to 2.79, sodium 132, blood sugar 401. IMPRESSION: 1. Acute on chronic kidney disease seems to be improving. 2. Hyponatremia, partly pseudohyponatremia in the context of severe hyperglycemia. PLAN: 1. Continue current renal supportive measures. 2. Monitor the kidney level, the kidney function, especially status post paracentesis. 3. Further management to be dependent on the clinical course.
[2018-04-17 05:49] LABS: #Lymphocytes 0.6 thou/uL (1.20-3.40); #Monocytes 0.4 thou/uL (0.11-0.59); #Neutrophils 3.5 thou/uL (1.40-6.50); %Basophils 0.3 % (0.0-1.0); %Eosinophils 0.9 % (0.0-10.0); %Lymphocytes 13.4 % (21.0-51.0); %Monocytes 9.4 % (0.0-10.0); %Neutrophils 76.1 % (42.0-75.0); Hemoglobin 9.5 g/dL (12.0-16.0); Mean Corpuscular HGB CONC 32.8 g/dL (32.0-36.0); Mean Corpuscular Hemoglobin 26.2 pg (27.0-31.0); Mean Corpuscular Volume 79.8 fL (78.0-98.0); Mean Platelet Volume 6.9 fL (7.4-10.4); Platelet Count 57 thou/uL (130-400); RBC Distribution Width 16.4 % (11.5-14.5); Red Blood Cell (RBC) Count 3.61 mill/uL (4.20-5.40); White Blood Cell (WBC) Count 4.6 thou/uL (4.8-10.8)
[2018-04-17 06:35] LABS: Anion Gap 11 mmol/L (10-20); BUN (Urea Nitrogen) 48 mg/dL (9.8-20.1); Calc. Creatinine Clearance 40 mL/min (70-130); Carbon Dioxide 23 mmol/L (23-31); Chloride 105 mmol/L (98-107); Estimated GFR-MDRD 26; Glucose 121 mg/dL (80-115); Potassium 3.9 mmol/L (3.5-5.1); Sodium 135 mmol/L (136-145)
[2018-04-17] MEDS: Metoprolol Tartrate 25 MG TAB PO SCH ×2 (09:25→20:12)
[2018-04-17] MEDS: Insulin Glargine 30 UNITS in Pre-Filled Syringe 1 EACH SC SCH (09:26)
[2018-04-17] MEDS: Escitalopram Oxalate 10 mg Tablet PO SCH (09:38)
[2018-04-17] MEDS ORDERED: rOPINIRole HCl 0.5 MG TAB PO PRN (11:50)
--- NOTE | 2018-04-17 12:26 | PRG ---
DATE OF SERVICE: 04/17/2018 GI INPATIENT DAILY PROGRESS NOTE SUBJECTIVE: Ms. Barraza continues to complain of her chronic nausea, but she has had no vomiting. She has tolerated breakfast and currently eating lunch. She still has some loose stools. OBJECTIVE: VITAL SIGNS: Temperature 98.5, pulse 63, blood pressure 159/77, 96% oxygen saturation on room air. GENERAL: No acute distress. HEART: Regular rate and rhythm. LUNGS: Clear to auscultation bilaterally. ABDOMEN: Bowel sounds present. Mild distention, soft and nontender to palpation throughout. EXTREMITIES: No peripheral edema. LABORATORY STUDIES: Sodium 135, potassium 3.9, BUN 48, creatinine down to 2.3, glucose 152, calcium 8.0, WBC 4.6, hemoglobin 9.5, platelets 57. ASSESSMENT AND PLAN: 1. Cirrhosis, secondary to prior alcohol abuse and fatty liver. 2. Ascites. Note that 750 mL paracentesis fluid studies were negative for spontaneous bacterial per itonitis. 3. Chronic hepatic encephalopathy. Would continue both lactulose and rifaximin. Dr. Gudino adjusted her lactulose down to twice daily yesterday. Titrate lactulose for a goal of 2-3 loose bowel moveme nts per day. 4. Acute renal failure. Dr. Abreu is following. Creatinine has improved a bit today. 5. Anemia. This is stable from yesterday. No evidence of overt gastrointestinal bleeding. Conside r possibly secondary to her renal failure.
--- NOTE | 2018-04-17 12:32 | PRG ---
DATE OF SERVICE: 04/17/2018 SUBJECTIVE: The patient states she is having some nausea and some generalized, but more epigastric a bdominal discomfort. PHYSICAL EXAMINATION: VITAL SIGNS: Temperature is 98.5, pulse 63, respirations 18, 96% on room air, BP 137/64-159/77. GENERAL APPEARANCE: Morbidly obese female. She is in no distress. She still appears subtly encepha lopathic, but is conversant. HEART: Regular, without murmurs. LUNGS: Clear bilaterally. ABDOMEN: Really does not have substantial tenderness, although very minimal on the epigastric area. No masses are palpable. EXTREMITIES: Warm and dry without significant edema. LABORATORY AND X-RAY FINDINGS: White count 4.6, hemoglobin 9.5, platelets 57. Sodium 135, potassium 3.9, BUN 48, creatinine 2.3, glucose 137, ranging to a high of 245. Paracentesis fluid culture nega tive so far. IMPRESSION AND PLAN: 1. Hepatic encephalopathy, on lactulose and Xifaxan, appears to be probably at her baseline from a ental status perspective. 2. Hyperglycemia, resolved. 3. Diabetes with hyperglycemia, improved. Continue with current medication regimen. 4. Acute kidney injury. Creatinine is improving daily. Nephrology following. 5. History of alcoholic cirrhosis with ascites. Patient had 1 liter of fluid drained. She is havin g a little bit of abdominal discomfort now, but it does not appear to be substantial or related to pa racentesis at this point. 6. History of bipolar disorder. 7. History of chronic hepatitis C. The patient reports that she has had it treated and it is resolv ed. 8. Hypertension, stable. 9. Morbid obesity. 10. Hyperkalemia, improved. 11. Abdominal pain, unclear etiology. She had a paracentesis. The fluid did not look bad. Antibio tics have been discontinued. We will continue to monitor that for the time being. 12. Thrombocytopenia, likely due to the patient's chronic liver disease. However, her numbers have continued to come down. Her Pepcid was discontinued. DISPOSITION: The patient appears to be over her presenting initial issue of the altered mental statu s, likely related to hepatic encephalopathy. Her renal function is improving. She does not appear t o have SBP. We will need to focus on some disposition for this patient. Concerned it may not be bef ore Thursday. Certainly, for now, we will need to continue to monitor for her abdominal discomfort and nausea to see if that will resolve.
[2018-04-17] MEDS: Rifaximin 550 MG TAB PO SCH ×2 (15:05→20:10)
--- NOTE | 2018-04-17 23:44 | PRG ---
DATE OF SERVICE: 04/17/2018 SUBJECTIVE: The patient was seen and examined and noted with the following vital signs. PHYSICAL EXAMINATION: VITAL SIGNS: Afebrile with temperature 98.2, pulse 61, respiratory rate of 16, O2 sat of 95%, blood pressure of 148/69. HEENT: Unremarkable with moist oral mucosa. NECK: Supple, no conjunctival injection or icterus. CARDIOVASCULAR SYSTEM: First and second heart sounds were heard. RESPIRATORY SYSTEM: Clear to auscultation. DIGESTIVE SYSTEM: Revealed a benign abdomen with positive bowel sounds. EXTREMITIES: No peripheral edema. SKIN: No new gross rash. LYMPHATICS: No peripheral lymphadenopathy. LABORATORY INVESTIGATIONS: Significant for creatinine that has gone down to 2.3 with BUN of 48. IMPRESSION: Acute on chronic kidney disease, which seems to be improving. PLAN: 1. Continue current renal supportive measures. 2. Further management to be dependent on the clinical course. 3. Outpatient Nephrology followup status post discharge strongly recommended.
[2018-04-18] MEDS: Insulin Glargine 30 UNITS in Pre-Filled Syringe 1 EACH SC SCH ×3 (00:34→21:06)
[2018-04-18] MEDS ORDERED: Calcium Carbonate 500 MG ChewTAB PO PRN (04:03)
[2018-04-18 08:47] LABS: #Eosinphils 0.1 thou/uL (0.0-0.7); #Lymphocytes 0.5 thou/uL (1.20-3.40); #Monocytes 0.5 thou/uL (0.11-0.59); #Neutrophils 2.9 thou/uL (1.40-6.50); %Lymphocytes 13.2 % (21.0-51.0); %Monocytes 11.2 % (0.0-10.0); %Neutrophils 73.5 % (42.0-75.0); Hemoglobin 9.7 g/dL (12.0-16.0); Mean Corpuscular HGB CONC 32.9 g/dL (32.0-36.0); Mean Corpuscular Hemoglobin 26.1 pg (27.0-31.0); Mean Corpuscular Volume 79.5 fL (78.0-98.0); Mean Platelet Volume 7.7 fL (7.4-10.4); PLT Morphology Comment Appears Decreased; Platelet Count 55 thou/uL (130-400); RBC Distribution Width 16.3 % (11.5-14.5); Red Blood Cell (RBC) Count 3.72 mill/uL (4.20-5.40)
[2018-04-18 08:48] LABS: MDiff Complete? YES
[2018-04-18 08:49] LABS: Anion Gap 10 mmol/L (10-20); BUN (Urea Nitrogen) 44 mg/dL (9.8-20.1); Calc. Creatinine Clearance 49 mL/min (70-130); Calcium 8.1 mg/dL (7.8-10.44); Carbon Dioxide 23 mmol/L (23-31); Chloride 106 mmol/L (98-107); Estimated GFR-MDRD 32; Glucose 155 mg/dL (80-115); Sodium 135 mmol/L (136-145)
[2018-04-18] MEDS: Escitalopram Oxalate 10 mg Tablet PO SCH (09:02)
[2018-04-18] MEDS: Metoprolol Tartrate 25 MG TAB PO SCH ×2 (09:04→21:15)
[2018-04-18] MEDS: Rifaximin 550 MG TAB PO SCH ×2 (09:06→21:06)
[2018-04-18] MEDS: Simvastatin 20 MG TAB PO SCH (09:06)
[2018-04-18] MEDS: Acetaminophen 325 MG TAB PO PRN ×2 (09:08→14:21)
--- NOTE | 2018-04-18 11:15 | PRG ---
DATE OF SERVICE: 04/18/2018 GI INPATIENT DAILY PROGRESS NOTE SUBJECTIVE: Mrs. Barraza is doing pretty well this morning. She has some mild nausea, but no vomiting , no abdominal pain. She has not had a bowel movement yet today, but took her lactulose this morning . Her renal function appears to be continuing to improve. OBJECTIVE: VITAL SIGNS: Temperature 98.3, pulse 62, blood pressure 125/59, 94% oxygen saturation on room air. GENERAL: No acute distress. HEART: Regular rate and rhythm. LUNGS: Clear to auscultation bilaterally. ABDOMEN: Mild distention. Bowel sounds present, soft and nontender to palpation throughout. EXTREMITIES: No peripheral edema. LABORATORY STUDIES: Hemoglobin stable at 9.7, WBC 4.0, platelets 55. Sodium 135, potassium 4.0, BUN 44, creatinine down to 1.93 and glucose 155. ASSESSMENT AND PLAN: 1. Cirrhosis, secondary to prior alcohol abuse and fatty liver. 2. Ascites. Paracentesis fluid studies were negative for spontaneous bacterial peritonitis. 3. Chronic hepatic encephalopathy. She is mentating well on both lactulose and rifaximin, lactulose was titrated down to twice per day at this point. 4. Acute renal failure. Note, the creatinine has continued to improve today. Dr. Abreu has re commended outpatient followup with Nephrology. 5. Anemia. This is stable over the past 2 days now. There is no evidence of overt gastrointestinal bleeding. GI will sign off at this time. The patient should follow up in the GI Clinic with Dr. Gudino or his [employer]. Please call back anytime with questions or concerns.
--- NOTE | 2018-04-18 13:56 | PDOC.PN ---
- Subjective Encounter Start Date: 04/18/18 Encounter Start Time: 10:45 Only complains of some mild generalized abdominal discomfort. Can't be more specific. - Objective Resuscitation Status: Resuscitation Status FULL:Full Resuscitation Vital Signs & Weight: Vital Signs (12 hours) Temp Pulse Resp BP Pulse Ox 04/18/18 12:05 98.6 F 61 16 146/66 H 93 L 04/18/18 08:10 94 L 04/18/18 07:15 98.3 F 62 17 125/59 L 94 L 04/18/18 04:00 98.7 F 58 L 16 139/66 92 L Weight Weight 229 lb 3 oz I&O: 04/17/18 04/18/18 04/19/18 06:59 06:59 06:59 Intake Total 300 300 Output Total 300 Balance 0 300 Result Diagrams: 04/18/18 07:57 04/18/18 07:57 Additional Labs: Accuchecks 04/18/18 04/18/18 04/17/18 06:00 00:18 18:04 POC Glucose 170 H 218 H 124 H Phys Exam - Physical Examination Constitutional: NAD Obese. Respiratory: no wheezing, no rales, no rhonchi, clear to auscultation bilateral Cardiovascular: RRR, no significant murmur, no rub Gastrointestinal: soft, no distention, positive bowel sounds No signif TTP. Musculoskeletal: no edema Appears to be at baseline mental capacity. Dx/Plan (1) Acute hepatic encephalopathy Code(s): K72.00 - ACUTE AND SUBACUTE HEPATIC FAILURE WITHOUT COMA Status: Acute Comment: Back on lactulose and Xifaxan. Improved. (2) Hypoglycemia Code(s): E16.2 - HYPOGLYCEMIA, UNSPECIFIED Status: Resolved (3) Acute kidney failure Status: Acute Comment: Nephrology consulted. Improved creatinine daily, but still not at baseline. Off fluids. (4) Demand ischemia of myocardium Code(s): I24.8 - OTHER FORMS OF ACUTE ISCHEMIC HEART DISEASE Status: Acute (5) Alcoholic cirrhosis of liver with ascites Code(s): K70.31 - ALCOHOLIC CIRRHOSIS OF LIVER WITH ASCITES Status: Chronic Comment: Paracentesis of 750 ml. Far less than she has had in the past. No evidence of infection. (6) Bipolar disorder Code(s): F31.9 - BIPOLAR DISORDER, UNSPECIFIED Status: Chronic Qualifiers: Active/Remission status: remission status unspecified Qualified Code(s): F31.9 - Bipolar disorder, unspecified (7) Chronic hepatitis C Code(s): B18.2 - CHRONIC VIRAL HEPATITIS C Status: Chronic Qualifiers: Hepatic coma status: without hepatic coma Comment: states it was treated and resolved. (8) DM2 (diabetes mellitus, type 2) Status: Chronic Qualifiers: Diabetes mellitus snf insulin use: with snf use Diabetes mellitus complication status: with unspecified complications Qualified Code(s) : E11.8 - Type 2 diabetes mellitus with unspecified complications; Z79.4 - rn long term care (current) use of insulin Comment: Much improved. No change. Insulin Glargine 30 units bid. (9) Hypertension Code(s): I10 - ESSENTIAL (PRIMARY) HYPERTENSION Status: Chronic Qualifiers: Hypertension type: essential hypertension Qualified Code(s): I10 - Essential (primary) hypertension Comment: Continue metoprolol (10) Obesity (BMI 30-39.9) Code(s): E66.9 - OBESITY, UNSPECIFIED Status: Chronic (11) Hyperkalemia Code(s): E87.5 - HYPERKALEMIA Status: Resolved (12) Abdominal pain Code(s): R10.9 - UNSPECIFIED ABDOMINAL PAIN Status: Acute Comment: Appears benign. Suspect it is related to being on the lactulose and having some bowel cramping. - Plan * Monitoring renal function daily. Improved, but not at baseline yet. * Daughter coming tomorrow. The plan is for her to go home with her daughter. Could be tomorrow.
[2018-04-18] MEDS: Insulin Regular 300 UNITS/3 ML VIAL SC PRN ×2 (14:12→18:38)
[2018-04-19] MEDS: Insulin Regular 300 UNITS/3 ML VIAL SC PRN ×3 (00:29→18:18)
--- NOTE | 2018-04-19 04:36 | PRG ---
DATE OF SERVICE: 04/18/2018 SUBJECTIVE: Patient with no new complaint noted with the following vital signs. PHYSICAL EXAMINATION: VITAL SIGNS: Afebrile with temperature 98.7, pulse 61, respiratory rate 17, O2 saturation 97%, blood pressure 164/77. HEENT: Unremarkable. CARDIOVASCULAR: First and second heart sounds were heard. RESPIRATORY: Clear to auscultation. DIGESTIVE: Revealed a benign abdomen with positive bowel sounds. EXTREMITIES: No peripheral edema. SKIN: No new gross rash. LYMPHATICS: No peripheral lymphadenopathy. LABORATORY INVESTIGATIONS: Significant for creatinine down to 1.9. IMPRESSION: Acute on chronic kidney disease, which seems to be maintaining sustained clinical improv ement. PLAN: 1. We will continue with current renal supportive measures. 2. Outpatient nephrology followup recommended status post discharge.
[2018-04-19 06:50] LABS: #Eosinphils 0.1 thou/uL (0.0-0.7); #Lymphocytes 0.6 thou/uL (1.20-3.40); #Monocytes 0.4 thou/uL (0.11-0.59); #Neutrophils 2.6 thou/uL (1.40-6.50); %Eosinophils 3.3 % (0.0-10.0); %Lymphocytes 16.4 % (21.0-51.0); %Monocytes 11.6 % (0.0-10.0); %Neutrophils 68.7 % (42.0-75.0); Hemoglobin 9.4 g/dL (12.0-16.0); Mean Corpuscular HGB CONC 32.3 g/dL (32.0-36.0); Mean Corpuscular Hemoglobin 25.8 pg (27.0-31.0); Mean Corpuscular Volume 79.9 fL (78.0-98.0); Mean Platelet Volume 8.7 fL (7.4-10.4); RBC Distribution Width 15.9 % (11.5-14.5); Red Blood Cell (RBC) Count 3.65 mill/uL (4.20-5.40); White Blood Cell (WBC) Count 3.8 thou/uL (4.8-10.8)
[2018-04-19 06:51] LABS: Platelet Count 62 thou/uL (130-400)
[2018-04-19 07:00] LABS: ALT (SGPT) 30 U/L (8-55); AST (SGOT) 61 U/L (5-34); Albumin 2.4 g/dL (3.4-4.8); Alkaline Phosphatase 178 U/L (40-150); Anion Gap 7 mmol/L (10-20); BUN (Urea Nitrogen) 32 mg/dL (9.8-20.1); Bilirubin, Total 0.9 mg/dL (0.2-1.2); Calc. Creatinine Clearance 41 mL/min (70-130); Calcium 7.9 mg/dL (7.8-10.44); Carbon Dioxide 26 mmol/L (23-31); Chloride 105 mmol/L (98-107); Estimated GFR-MDRD 27; Globulin 3.3 g/dL (2.4-3.5); Glucose 236 mg/dL (80-115); Potassium 4.4 mmol/L (3.5-5.1); Protein, Total 5.7 g/dL (6.0-8.3); Sodium 134 mmol/L (136-145)
[2018-04-19] MEDS: Escitalopram Oxalate 10 mg Tablet PO SCH (08:26)
[2018-04-19] MEDS: Insulin Glargine 30 UNITS in Pre-Filled Syringe 1 EACH SC SCH ×2 (08:26→21:42)
[2018-04-19] MEDS: Rifaximin 550 MG TAB PO SCH ×2 (08:27→21:38)
[2018-04-19] MEDS: Metoprolol Tartrate 25 MG TAB PO SCH ×2 (08:27→21:38)
[2018-04-19] MEDS: Simvastatin 20 MG TAB PO SCH (08:27)
--- NOTE | 2018-04-19 09:49 | PDOC.EVN ---
Event Note - Event Note Event Note: Feels great. Wants to go home. Daughter from [place] will be here today to get her. She has a doctor in [place] to follow up with. Discussed with Dr. Gaitan and he is comfortable with the discharge.
--- NOTE | 2018-04-19 12:02 | PDOC.CTH ---
Cardiology Progress Note - Subjective Doing very well. No chest pain, tightness ,pressure, SOB. - Objective Vital Signs Temp Pulse Resp BP BP BP Pulse Ox 04/19/18 07:40 98.4 F 72 18 141/66 H 94 L 04/19/18 06:50 92 L 04/19/18 04:00 98.1 F 68 16 147/72 H 92 L 04/19/18 00:10 96.8 F L 62 17 133/74 94 L Weight 225 lb 04/18/18 04/19/18 04/20/18 06:59 06:59 06:59 Intake Total 300 410 Balance 300 410 - Physical Examination General/Neuro: alert & oriented x3, NAD Neck: no JVD present Lungs: CTA, unlabored respirations Heart: RRR Abdomen: NT/ND Extremities: + edema B (1+) - Telemetry Telemetry Rhythm: NSR - Labs Result Diagrams: 04/19/18 05:54 04/19/18 05:54 Troponin/CKMB CK-MB (CK-2) 4.6 ng/mL (0-6.6) 04/14/18 09:22 Troponin I 1.109 ng/mL (< 0.028) H* 04/14/18 15:11 - Assessment/Plan 1. NSTEMI, demand ischemia likely 2. Normal LV function. 3. Alcoholic cirrhosis 4. Acute renal failure 5. AMS secondary to hypoglycemia 6. Chronic hepatic encephalopathy. PLAN: - CV stable. - No new recs. - May discharge home any time.
[2018-04-19] MEDS: Acetaminophen 325 MG TAB PO PRN (12:30)
--- NOTE | 2018-04-19 16:41 | PDOC.PN ---
- Subjective Encounter Start Date: 04/19/18 Encounter Start Time: 08:30 Feels well. See "event note" from today. - Objective Resuscitation Status: Resuscitation Status FULL:Full Resuscitation Vital Signs & Weight: Vital Signs (12 hours) Temp Pulse Resp BP BP Pulse Ox 04/19/18 15:10 99.0 F 56 L 16 130/59 L 95 04/19/18 12:15 98.6 F 67 17 154/68 H 96 04/19/18 07:40 98.4 F 72 18 141/66 H 94 L 04/19/18 06:50 92 L Weight Weight 225 lb I&O: 04/18/18 04/19/18 04/20/18 06:59 06:59 06:59 Intake Total 300 410 Balance 300 410 Result Diagrams: 04/19/18 05:54 04/19/18 05:54 Additional Labs: Accuchecks 04/19/18 04/19/18 04/19/18 12:23 05:35 00:00 POC Glucose 263 H 248 H 322 H 04/18/18 04/18/18 20:38 18:03 POC Glucose 337 H 300 H Phys Exam - Physical Examination Constitutional: NAD Respiratory: no wheezing, no rales, no rhonchi, clear to auscultation bilateral Cardiovascular: RRR, no significant murmur, no rub Gastrointestinal: soft, non-tender, no distention, positive bowel sounds Musculoskeletal: no edema Psychiatric: normal affect Dx/Plan (1) Acute hepatic encephalopathy Code(s): K72.00 - ACUTE AND SUBACUTE HEPATIC FAILURE WITHOUT COMA Status: Acute Comment: Back on lactulose and Xifaxan. Improved. (2) Hypoglycemia Code(s): E16.2 - HYPOGLYCEMIA, UNSPECIFIED Status: Resolved (3) Acute kidney failure Status: Acute Comment: Nephrology consulted. Improved creatinine daily, but still not at baseline. Off fluids. (4) Demand ischemia of myocardium Code(s): I24.8 - OTHER FORMS OF ACUTE ISCHEMIC HEART DISEASE Status: Acute (5) Alcoholic cirrhosis of liver with ascites Code(s): K70.31 - ALCOHOLIC CIRRHOSIS OF LIVER WITH ASCITES Status: Chronic Comment: Paracentesis of 750 ml. Far less than she has had in the past. No evidence of infection. (6) Bipolar disorder Code(s): F31.9 - BIPOLAR DISORDER, UNSPECIFIED Status: Chronic Qualifiers: Active/Remission status: remission status unspecified Qualified Code(s): F31.9 - Bipolar disorder, unspecified (7) Chronic hepatitis C Code(s): B18.2 - CHRONIC VIRAL HEPATITIS C Status: Chronic Qualifiers: Hepatic coma status: without hepatic coma Comment: states it was treated and resolved. (8) DM2 (diabetes mellitus, type 2) Status: Chronic Qualifiers: Diabetes mellitus director radio insulin use: with longterm use Diabetes mellitus complication status: with unspecified complications Qualified Code(s) : E11.8 - Type 2 diabetes mellitus with unspecified complications; Z79.4 - retirement (current) use of insulin Comment: Much improved. No change. Insulin Glargine 30 units bid. (9) Hypertension Code(s): I10 - ESSENTIAL (PRIMARY) HYPERTENSION Status: Chronic Qualifiers: Hypertension type: essential hypertension Qualified Code(s): I10 - Essential (primary) hypertension Comment: Continue metoprolol (10) Obesity (BMI 30-39.9) Code(s): E66.9 - OBESITY, UNSPECIFIED Status: Chronic (11) Hyperkalemia Code(s): E87.5 - HYPERKALEMIA Status: Resolved (12) Abdominal pain Code(s): R10.9 - UNSPECIFIED ABDOMINAL PAIN Status: Resolved Comment: Appears benign. Suspect it is related to being on the lactulose and having some bowel cramping. - Plan * Patient's daughter arrived today and convinced the patient to go to a SNF/ rehab. This was the original plan, but the patient had declined. Will cancel discharge and have start working on this.
--- NOTE | 2018-04-19 22:58 | PRG ---
DATE OF SERVICE: 04/19/2018 SUBJECTIVE: The patient was seen and examined, noted with the following vital signs. OBJECTIVE: VITAL SIGNS: Afebrile with temperature 99, pulse 56. HEENT: Unremarkable with moist oral mucosa. NECK: Supple. No conjunctival injection or icterus. CARDIOVASCULAR: First and second heart sounds were heard. RESPIRATORY: Clear to auscultation. DIGESTIVE: Revealed a benign abdomen with positive bowel sounds. EXTREMITIES: No peripheral edema. SKIN: No new gross rash. LYMPHATICS: No peripheral lymphadenopathy. LABORATORY INVESTIGATIONS: Showed creatinine of 2.24, BUN of 32. IMPRESSION: 1. Acute on chronic kidney disease, which seems to be improved. 2. End-stage liver disease. PLAN: 1. Continue renal supportive measures. 2. Further management to be dependent on the clinical course. 3. Outpatient followup. Nephrology followup recommended.
[2018-04-20] MEDS: traMADol HCl 50 MG TAB PO PRN (02:14)
[2018-04-20] MEDS: Insulin Regular 300 UNITS/3 ML VIAL SC PRN ×3 (02:16→12:29)
[2018-04-20 06:45] LABS: Anion Gap 10 mmol/L (10-20); BUN (Urea Nitrogen) 48 mg/dL (9.8-20.1); Calc. Creatinine Clearance 47 mL/min (70-130); Carbon Dioxide 23 mmol/L (23-31); Chloride 106 mmol/L (98-107); Estimated GFR-MDRD 30; Glucose 183 mg/dL (80-115); Potassium 4.5 mmol/L (3.5-5.1); Sodium 134 mmol/L (136-145)
[2018-04-20] MEDS: Escitalopram Oxalate 10 mg Tablet PO SCH (08:43)
[2018-04-20] MEDS: Simvastatin 20 MG TAB PO SCH (08:43)
[2018-04-20] MEDS: Metoprolol Tartrate 25 MG TAB PO SCH (08:43)
[2018-04-20] MEDS: Insulin Glargine 30 UNITS in Pre-Filled Syringe 1 EACH SC SCH (08:45)
[2018-04-20] MEDS: Rifaximin 550 MG TAB PO SCH (09:41)
[2018-04-20 11:42] VITALS: BP 128/59; TEMP 98.9
[2018-04-20] MEDS ORDERED: Ondansetron ODT 4 MG TAB PO SCH (12:45)
--- NOTE | 2018-04-20 15:12 | PDOC.EVN ---
Event Note - Event Note Event Note: Clarified with charge nurse that the insulin dose on the original DC med list needed to be changed. Change made to med list and she will send it to [facility]. Patient initally had hypoglycemia and she was still on a SSI regimen here. Will change from her original dose of Lantus 60 units bid and 70/30 30 units qac to lantus 45 units bid and Humalog 15 units q ac. She will likely need to have this titrated once she is on the diet regimen at [facility].
--- NOTE | 2018-04-21 01:03 | DIS ---
DATE OF ADMISSION: 04/14/2018 DATE OF DISCHARGE: 04/20/2018 DISCHARGE DIAGNOSES: 1. Hepatic encephalopathy. 2. Acute on chronic renal insufficiency. 3. Alcoholic cirrhosis of the liver with ascites. 4. History of chronic hepatitis C, presumably resolved. 5. Bipolar disorder. 6. Diabetes mellitus. 7. Hypertension. 8. Obesity. 9. Hyperkalemia. 10. Demand ischemia. 11. Abdominal pain. HOSPITAL COURSE: The patient is a 62-year-old female with a history of chronic liver disease who nessa arently has some compliance issues with taking her lactulose and rifaximin. [facility] with confusion and hypoglycemia with apparently a blood sugar around 40. She did receive initi ally some D50 by the ambulance and improved somewhat. Her fingerstick in the emergency department wa s 219 and troponin was 0.8. The patient was still apparently encephalopathic, although able to talk and her daughter indicated that she is worried that the patient has not been compliant with meds and diet. HOSPITAL COURSE: The patient was admitted to the telemetry unit where she continued to have her trop onins trended. She was seen in consultation by Cardiology who felt her elevated troponins were likel y demand ischemia. She had an echocardiogram performed which revealed an ejection fraction of 60%-65 % with grade 1/3 diastolic dysfunction. She was seen in consultation by GI and ultimately had an ult rasound guided paracentesis performed. She did have some abdominal discomfort prompting this and she had 750 mL of fluid removed. This fluid appeared fairly benign and labs and culture were unremarkab le. The patient also had worsening renal function during this admission. Initially, her creatinine was 1.25, which is close to her chronic baseline, but the subsequent day her creatinine increased to 3. She had some fluids given and she had decline in her creatinine over the next several days. Neph rology was consulted and continued to follow the patient, it was noted that after fluids were discont inued. Her creatinine came back up very slightly. However, the patient was otherwise doing well and felt to be stable for discharge. Discussed with Nephrology and they were comfortable with her disch arging to home. Also, of note, the patient's blood sugars were highly variable during her hospitaliz ation requiring some continued sliding scale. Ultimately, once the patient was felt to be stable for discharge home, she had declined going to any type of skilled facility and it indicated she would be going home with her daughter to [place]. However, the patient's daughter arrived on 04/19/2018 and indicated she would prefer not to take the patient home and convince the patient to pursue skilled nu rsing placement. The patient was kept another day and that arrangement was made. PHYSICAL EXAMINATION: VITAL SIGNS: On the day of discharge, temperature is 98.9, pulse 62, respirations 18, O2 sat 95% on room air, BP is 128/59. GENERAL: She is awake, alert, and oriented. States she feels well. HEART: Regular rate and rhythm without murmurs. LUNGS: Clear bilaterally. ABDOMEN: Soft, nontender. EXTREMITIES: Warm and dry without significant edema. Creatinine is 2.0. DISPOSITION: The patient is discharged to care home facility. She has been on a diabetic diet . Her activity level is as tolerated. She will be on metoprolol 25 mg p.o. b.i.d. as a new medicati on. She will also remain on simvastatin, omeprazole, Lexapro, Xifaxan, hydroxyzine, zolpidem, Zofran , tramadol, 60 units of NPH, Novolin 70/30 q.a.c. Ropinirole 0.5 mg as needed, insulin Glargine 60 units subcu at bedtime, Lasix 40 mg b.i.d., lactulose 20 grams q.i.d. The patient should follow up with her PCP and return to the emergency department should she have any problems prior to that time and she has to follow up with Dr. Goldstein, Dr. Abreu, Dr. Blair and Dr. Moulton.
--- NOTE | 2018-04-21 07:47 | CON ---
DATE OF CONSULTATION: 04/15/2018 REASON FOR CONSULTATION: Elevated troponin's. HISTORY OF PRESENT ILLNESS: Ms. Barraza is a very pleasant 62-year-old female who co mes to the hospital for altered sensation. The son went to check on her as she lives in assisted [facility] in [facility]. She would not open her door. The son had a galindo, opened, she was not being herse lf, 911 was called and on arrival it was found that her blood sugar was 40. They got an IV in and ga ve her Dextrose through her IV and brought her to the ER. Her glucose is better. Troponin's were dr rodriguez and they were mildly elevated, so Cardiology is being consulted for this. Ms. Barraza denies deandra brewer had any chest pain, tightness or pressure in the last few days, but admits that she has had episode s of chest pain in the past. These are mostly at rest, but sometimes with exertion. She does have a history of hepatic cirrhosis secondary to alcohol use and has to have regular paracentesis every 2 w eeky. She has been doing this in [place]. Apparently she has not had a paracentesis for the last mo [facility]. During her initial evaluation troponin's were drawn, they were elevated so Cardiology has been consulted for this. PAST MEDICAL HISTORY: 1. Alcoholic cirrhosis. 2. Refractory ascites requiring frequent paracentesis every 2 weeks. 3. Type 2 diabetes. 4. Hypertension. 5. Bipolar disorder. PAST SURGICAL HISTORY: 1. Hysterectomy. 2. Tubal ligation. 3. Right shoulder repair. 4. Esophagogastroduodenoscopy. 5. Colonoscopy. 6. Cataract surgery. SOCIAL HISTORY: No alcohol or drugs. Former alcohol user. No tobacco use. FAMILY HISTORY: Noncontributory. OUTPATIENT MEDICATIONS: 1. Citalopram 10 mg daily. 2. Lasix 40 mg twice a day. 3. Atarax. 4. Lantus. 5. Novolin 70/30. 6. Omeprazole 20 daily. 7. Zofran p.r.n. 8. Rifaximin 550 mg b.i.d. 9. Ropinirole. 10. Simvastatin 200 mg daily. 11. Ultram p.r.n. for pain. 12. Zolpidem 5 mg at bedtime. 13. Lactulose. ALLERGIES: ASPIRIN, CODEINE, FENTANYL, IODINE, MEPERIDINE, MEDAZOLAM, PENICILLIN and SULFA DRUGS. REVIEW OF SYSTEMS: A 12-point review of systems was done and is all negative unless stated in the hi story of present illness. PHYSICAL EXAMINATION: VITAL SIGNS: Temperature 98.5, pulse 87, respiratory rate 18, satting 100% on 2 liters nasal cannula , blood pressure 154/70. GENERAL: Awake, alert, oriented x3. No distress. HEENT: Normocephalic and atraumatic. NECK: Supple. LUNGS: Lungs are clear. CARDIOVASCULAR: S1 and S2. No S3, no S4. There is a grade 2/6 systolic murmur right upper sternal border. ABDOMEN: Soft with good bowel sounds. Abdomen has positive ascites. EXTREMITIES: No edema. SKIN: Warm and dry. LABORATORY: Laboratory work was reviewed. CBC with a white count of 7.7, hemoglobin 9.8 down from 1 2.1, hematocrit 29.6, platelet count 65. Coagulation; INR 1.2. Chemistries with sugars in the 600 r jose luis now. Troponin's have been 0.88, 1.15 and now 1.10. She has never had positive troponin's in e past. Potassium 6.1, creatinine 3.04, BUN 42. Her baseline creatinine has been in the 1.2 to 1.4 range. She came in at 1.25 yesterday. EKG was reviewed. Telemetry was reviewed. ASSESSMENT AND PLAN: 1. Non-ST elevation myocardial infarction. This is most likely from demand ischemia given her episo de of hypoglycemia and altered mentation. 2. She will need further risk stratification in the near future if she is interested; however, she i s a very poor candidate for any invasive studies given her elevated creatinine, iodine allergy and lo w platelets and possible bleeding. I would probably just treat her medically. 3. We will plan on doing an echocardiogram to assess left ventricular function and valvular structur es and depending on what that shows would decide on what medication she needs to be on. 4. Would probably stop her Plavix given her low platelets and her decreasing hemoglobin. Thank you for allowing me to participate in the care of your patient. I will follow. Further recomm endations after results of echo.
== END 2018-04-20 14:36 | DRG 682 ==
LOC: ERS 08:37 → 2NO 10:40
PROVIDERS: ADMIT Internal Medicine; ATTEND Internal Medicine
PROC: 0W9G3ZX Drainage of Peritoneal Cavity, Percutaneous Approach, Diagnostic (ICD-10-PCS; principal; 2018-04-16)
DX: N17.9 Acute kidney failure, unspecified (principal); J69.0 Pneumonitis due to inhalation of food and vomit; G93.40 Encephalopathy, unspecified; I24.8 Other forms of acute ischemic heart disease; E87.2 Acidosis; E87.1 Hypo-osmolality and hyponatremia; F31.9 Bipolar disorder, unspecified; K76.0 Fatty (change of) liver, not elsewhere classified; E11.649 Type 2 diabetes mellitus with hypoglycemia without coma; E87.5 Hyperkalemia; K70.31 Alcoholic cirrhosis of liver with ascites; B18.2 Chronic viral hepatitis C; E66.9 Obesity, unspecified; Z68.36 Body mass index [BMI] 36.0-36.9, adult; D69.6 Thrombocytopenia, unspecified; K72.10 Chronic hepatic failure without coma; E11.22 Type 2 diabetes mellitus with diabetic chronic kidney disease; I12.9 Hypertensive chronic kidney disease with stage 1 through stage 4 chronic kidney disease, or unspecified chronic kidney disease; N18.9 Chronic kidney disease, unspecified; Z79.4 Long term (current) use of insulin; Z88.5 Allergy status to narcotic agent; Z88.0 Allergy status to penicillin; Z88.2 Allergy status to sulfonamides; Z88.8 Allergy status to other drugs, medicaments and biological substances; Z80.3 Family history of malignant neoplasm of breast
CPT/HCPCS: 36415; 36416; 49083; 51701; 71045; 80048; 80053; 80306; 80307; 81003; 81015; 82140; 82550; 82553; 83690; 84484; 85025; 85060; 85610; 85730; 87070; 87205; 88112; 88305; 89051; 93005; 93306; 94760; 96372; A4216; G8978-GP-CJ; G8979-GP-CI; G8987-GO-CJ; G8988-GO-CI; J0692; J0696; J1650; J1815; J1956; J2405; J2920; J7050; Q0162; S0028